=== PATIENT | female | born 1945 | race Caucasian/White ===

== ENCOUNTER 2022-04-02 00:11 | Inpatient (IN) | payer MEDICARE, OTHER, SELFPAY ==
[2022-04-02] VITALS (46 sets, daily range): BP systolic 141–207; BP diastolic 70–114; PULSE 68–118; RESP 8–41; TEMP 36.6; O2SAT 83–96; BMI 43.4; BMI 41.8
--- NOTE | 2022-04-02 00:35 | ED.GENADULT ---
HPI - General Adult General Chief complaint: Shortness of Breath/Dyspnea Stated complaint: sob Time Seen by Provider: 04/02/22 00:14 History of Present Illness HPI narrative: 76-year-old woman with a history of diastolic CHF, hypertension, paroxysmal atrial fibrillation on warfarin, orthostatic hypotension, diabetes, hyperlipidemia, hypothyroidism, and fibromyalgia and opioid dependent chronic pain as well as asplenia presents with acute respiratory distress. She notes that she has been feeling more short of breath over the last number of days. Reportedly COVID positive on March 29 and was prescribed Paxlovid on 03/30. She reports that she does have a productive cough, describing the sputum as increasingly green over the last couple of days. She denies any fevers. She does not report overt chest pain or palpitations no abdominal pain no vomiting and does not feel that her lower extremity edema has worsened in any way. She is slightly confused and her supplements the history. Medications currently include Coreg 6.25 mg b.i.d., Celexa 40 mg, Prinivil 40 mg Coumadin 2.5 mg, oxycodone 10 mg 3 times a day, Demadex 20 mg daily, Synthroid 125 mcg daily Related Data Home Medications Medication Instructions Recorded Confirmed atorvastatin 40 mg tablet (Lipitor) 40 mg PO QAM ##0 12/20/16 carvedilol 6.25 mg tablet (Coreg) 6.25 mg PO BID ##0 12/20/16 citalopram 40 mg tablet (Celexa) 40 mg PO QDAY ##0 12/20/16 fentanyl 50 mcg/hr transdermal 1 patch topical EVERY OTHER DAY ##0 12/20/16 patch furosemide 40 mg tablet 40 mg PO QDAY ##0 12/20/16 levothyroxine 125 mcg tablet 125 mcg PO QDAY ##0 12/20/16 (Synthroid) lisinopril 40 mg tablet 40 mg PO QDAY ##0 12/20/16 warfarin 2.5 mg tablet (Coumadin) 2.5 mg PO QPM ##0 12/20/16 Previous Rx's Medication Instructions Recorded ACETAMINOPHEN 0 mg PO Q4HP PRN ##30 01/03/17 aspirin 81 mg tablet,delayed 81 mg PO BID #60 tabs 05/02/17 release cefazolin 2 gram/50 mL in dextrose 2 gm IV Q8H #21 ea 05/02/17 (iso-osmotic) intravenous piggyback oxycodone 5 mg tablet 5 - 10 mg PO Q3HP PRN #60 tabs 05/02/17 Allergies Allergy/AdvReac Type Severity Reaction Status Date / Time aspirin [ASPIRIN] AdvReac Severe GI UPSET Verified 04/02/22 00:48 paroxetine [From PAXIL] AdvReac Severe MAKES ME Verified 04/02/22 00:48 CRAZY Review of Systems Review of Systems ROS Unobtainable: Unobtainable due to medical condition and Unobtainable due to mental condition Patient History Medical History Atrial fibrillation Chronic pain disorder Diabetes Diastolic heart failure Fibromyalgia syndrome Hyperlipidemia Hypothyroidism (acquired) Obesity, Class III, BMI 40-49.9 (morbid obesity) Social History Smoking Status: Unknown if ever smoked Exam Initial Vital Signs Initial Vital Signs: Vital Signs Pulse Rate 114 H 04/02/22 00:29 Respiratory Rate 28 H 04/02/22 00:29 Blood Pressure 186/84 H 04/02/22 00:29 Pulse Oximetry 94 04/02/22 00:29 Oxygen Delivery Method 04/02/22 00:29 Oxygen Flow Rate 4 04/02/22 00:29 General: Chronically ill-appearing 76-year-old woman with moderate respiratory distress able to speak in 3-4 word sentences for overall memory HEENT: Very dry mucous membranes, normal sclera with reactive pupils, Neck: Unable to excess JVD secondary to work of breathing and body habitus Respiratory: Lungs significant crackles to upper lung liu, wheeze in all lung liu and rhonchi bilaterally lower lung field Cardiac: Tachycardic and irregular with overriding lung sounds Abdomen: Soft, obese, nontender, good bowel tones, no flank pain Skin: Warm and dry, no rashes Neurologic: Globally weak, able to move all extremities mild confusion Extremities: No trauma, 2+ bilateral lower extremity edema without chronic venous stasis changes Psych: acutely ill, mild confusion Course Orders Ordered: ED Orders 04/02/22 00:18 EKG-12 Lead Stat Measure peak expiratory flow ONCE RT Consult Eval and Treat Now 04/02/22 00:25 Complete Blood Count AUTO DIFF Stat Comprehensive Metabolic Panel Stat Lactate (Lactic Acid) Stat Lipase Stat Magnesium Stat NT-proBNP (BNP-Adult 18+) Stat Procalcitonin Stat Prothrombin Time INR Stat Troponin I Stat 04/02/22 00:45 Urinalysis and Microscopic Stat Urine Culture Stat 04/02/22 00:46 ABG [Arterial Blood Gas] Stat 04/02/22 00:47 XR chest 1V Stat 04/02/22 00:50 BiPAP Ventilatory Support RT PROTOCOL 04/02/22 00:51 COVID19 -Nasal RAPID/Pre-Proc Stat 04/02/22 01:04 Respiratory Panel (Film Array) Stat Sputum Culture Stat 04/02/22 02:03 Blood Culture Stat Discontinued Medications Albuterol/Ipratropium (Albuterol/Ipratropium 3 Ml Ampul) 3 ml INH NOW ONE Stop: 04/02/22 00:47 Last Admin: 04/02/22 02:01 Dose: 3 ml Documented By: MEDARDO Furosemide 120 mg/ Sodium (Chloride) 62 mls @ 124 mls/hr IV NOW ONE Stop: 04/02/22 00:51 Last Admin: 04/02/22 02:11 Dose: 124 mls/hr Documented By: JANIE Piperacillin Sod/Tazobactam (Sod 4.5 gm/ Sodium Chloride) 100 mls @ 200 mls/hr IV NOW ONE Stop: 04/02/22 00:51 Methylprednisolone (Methylprednisolone 125 Mg/2 Ml Vial) 125 mg IV NOW ONE Stop: 04/02/22 00:51 Last Admin: 04/02/22 02:10 Dose: 125 mg Documented By: JANIE Nitroglycerin (Nitroglycerin Oint 1 Inch/Gm Oint...G.) 0.5 inch TOP NOW ONE Stop: 04/02/22 01:14 Last Admin: 04/02/22 02:11 Dose: 0.5 inch Documented By: JANIE Vital Signs Vital signs: Vital Signs - 8 hr 04/02/22 00:29 04/02/22 01:40 04/02/22 02:11 Pulse Rate 114 H 112 H Respiratory Rate 28 H Blood Pressure 186/84 H 150/79 H Pulse Oximetry 94 92 Oxygen Delivery Method Nasal Cannula Nasal Cannula Oxygen Flow Rate 4 5 Fraction of Inspired Oxygen 04/02/22 01:50 Pulse Rate Respiratory Rate Blood Pressure Pulse Oximetry Oxygen Delivery Method Oxygen Flow Rate Fraction of Inspired Oxygen 40 Medical Decision Making Lab Data Result diagrams: 04/02/22 00:25 04/02/22 00:25 Labs: Lab Results 04/02/22 04/02/22 04/02/22 Range/Units 00:25 00:25 00:25 WBC 20.0 H (4.5-11.0) X10^3/uL RBC 5.09 (4.0-5.2) X10^6/uL Hgb 15.6 (12.0-16.0) g/dL Hct 46.9 H (36-46) % MCV 92.1 (80-100) fL MCH 30.6 (26-34) PG MCHC 33.2 (30-36) % RDW 14.4 (11.6-14.8) % Plt Count 266 (150-400) X10^3/uL Neut % (Auto) 82.2 H (50-75) % Lymph % (Auto) 9.2 L (25-40) % Beck[place] % (Auto) 7.5 (3-14) % Eos % (Auto) 1.0 L (2-4) % Baso % (Auto) 0.1 (0-2) % Neut # (Auto) 49128 H (4955-3432) /uL Lymph # (Auto) 1800 (1031-9441) /uL [place] # (Auto) 1500 H (0-900) /uL Eos # (Auto) 200 (0-450) /uL Baso # (Auto) 0 (0-100) /uL PT (10.1-12.7) SECONDS INR (0.9-1.3) Sodium 135 L (137-145) mmol/L Potassium 4.4 (3.4-5.1) mmol/L Chloride 97 L (98-107) mmol/L Carbon Dioxide 28 (22-32) mmol/L BUN 27 H (7-17) mg/dL Creatinine 0.98 (0.52-1.04) mg/dL Estimated GFR 59 L (>60) mL/min BUN/Creatinine Ratio 27.6 H (6-22) Glucose 171 H (80-110) mg/dL Lactate 1.7 (0.7-2.1) mmol/L Calcium 8.5 (8.4-10.2) mg/dL Magnesium (1.6-2.3) mg/dL Total Bilirubin 0.7 (0.2-1.3) mg/dL AST 36 (14-36) IU/L ALT 24 (<35) IU/L Alkaline Phosphatase 144 H (38-126) U/L Troponin I (0.01-0.034) ng/mL NT-Pro-B Natriuret Pep (<450) pg/mL Total Protein 8.0 (6.3-8.2) g/dL Albumin 4.0 (3.5-5.0) g/dL Globulin 4.0 (1.7-4.1) g/dL Albumin/Globulin Ratio 1.0 (1.0-2.8) Lipase (23-300) U/L Procalcitonin (<0.5) ng/mL Urine Color Urine Appearance Urine pH (4.5-8.0) Ur Specific [place] (1.000-1.035) Urine Protein (Negative) Urine Glucose (UA) (Negative) g/dL Urine Ketones (NEGATIVE) Urine Occult Blood (Negative) Urine Nitrate (Negative) Urine Bilirubin (NEGATIVE) Urine Urobilinogen (0.2) E.U./dL Ur Leukocyte Esterase (NEGATIVE) Urine RBC (0-5/HPF) Urine WBC (0-5/HPF) Ur Squamous Epith Cells (0-5/HPF) Urine Bacteria (None) Hyaline Casts (None) Granular Casts (None) Ur Culture Indicated? Chlamy pneumoniae PCR (Not Detect) Adenovirus (PCR) (Not Detect) B. pertussis DNA (PCR) (Not Detecte) B.parapertussis DNA PCR (Not Detecte) Coronavirus OC43 (PCR) (Not Detect) Coronavirus HKU1 (PCR) (Not Detect) Coronavirus 229E (PCR) (Not Detect) SARS-CoV-2 (PCR) (Negative) Coronavirus NL63 (PCR) (Not Detect) Human Metapneumovir PCR (Not Detect) Influenza Type A (PCR) (Not Detect) Influenza Type B (PCR) (Not Detect) M. pneumoniae (PCR) (Not Detect) Parainfluenza 1 (PCR) (Not Detect) Parainfluenza 2 (PCR) (Not Detect) Parainfluenza 3 (PCR) (Not Detect) Parainfluenza 4 (PCR) (Not Detect) RSV (PCR) (Not Detect) Entero/Rhino (PCR) (Not Detect) 04/02/22 04/02/22 04/02/22 Range/Units 00:25 00:25 00:45 WBC (4.5-11.0) X10^3/uL RBC (4.0-5.2) X10^6/uL Hgb (12.0-16.0) g/dL Hct (36-46) % MCV (80-100) fL MCH (26-34) PG MCHC (30-36) % RDW (11.6-14.8) % Plt Count (150-400) X10^3/uL Neut % (Auto) (50-75) % Lymph % (Auto) (25-40) % Beck[place] % (Auto) (3-14) % Eos % (Auto) (2-4) % Baso % (Auto) (0-2) % Neut # (Auto) (7737-6867) /uL Lymph # (Auto) (1493-9288) /uL [place] # (Auto) (0-900) /uL Eos # (Auto) (0-450) /uL Baso # (Auto) (0-100) /uL PT 22.4 H (10.1-12.7) SECONDS INR 2.0 H (0.9-1.3) Sodium (137-145) mmol/L Potassium (3.4-5.1) mmol/L Chloride (98-107) mmol/L Carbon Dioxide (22-32) mmol/L BUN (7-17) mg/dL Creatinine (0.52-1.04) mg/dL Estimated GFR (>60) mL/min BUN/Creatinine Ratio (6-22) Glucose (80-110) mg/dL Lactate (0.7-2.1) mmol/L Calcium (8.4-10.2) mg/dL Magnesium 2.2 (1.6-2.3) mg/dL Total Bilirubin (0.2-1.3) mg/dL AST (14-36) IU/L ALT (<35) IU/L Alkaline Phosphatase (38-126) U/L Troponin I < 0.012 (0.01-0.034) ng/mL NT-Pro-B Natriuret Pep 423 (<450) pg/mL Total Protein (6.3-8.2) g/dL Albumin (3.5-5.0) g/dL Globulin (1.7-4.1) g/dL Albumin/Globulin Ratio (1.0-2.8) Lipase 23 (23-300) U/L Procalcitonin 0.24 (<0.5) ng/mL Urine Color Yellow Urine Appearance Clear Urine pH 6.0 (4.5-8.0) Ur Specific [place] 1.020 (1.000-1.035) Urine Protein 2+ H (Negative) Urine Glucose (UA) Negative (Negative) g/dL Urine Ketones Negative (NEGATIVE) Urine Occult Blood 1+ H (Negative) Urine Nitrate Positive H (Negative) Urine Bilirubin Negative (NEGATIVE) Urine Urobilinogen 0.2 (0.2) E.U./dL Ur Leukocyte Esterase Negative (NEGATIVE) Urine RBC 1-5/hpf (0-5/HPF) Urine WBC 5-10/hpf H (0-5/HPF) Ur Squamous Epith Cells 1-5 /hpf (0-5/HPF) Urine Bacteria Many (>30) H (None) Hyaline Casts 10-30/lpf (None) Granular Casts 1-5/lpf (None) Ur Culture Indicated? Specimen cultured Chlamy pneumoniae PCR (Not Detect) Adenovirus (PCR) (Not Detect) B. pertussis DNA (PCR) (Not Detecte) B.parapertussis DNA PCR (Not Detecte) Coronavirus OC43 (PCR) (Not Detect) Coronavirus HKU1 (PCR) (Not Detect) Coronavirus 229E (PCR) (Not Detect) SARS-CoV-2 (PCR) (Negative) Coronavirus NL63 (PCR) (Not Detect) Human Metapneumovir PCR (Not Detect) Influenza Type A (PCR) (Not Detect) Influenza Type B (PCR) (Not Detect) M. pneumoniae (PCR) (Not Detect) Parainfluenza 1 (PCR) (Not Detect) Parainfluenza 2 (PCR) (Not Detect) Parainfluenza 3 (PCR) (Not Detect) Parainfluenza 4 (PCR) (Not Detect) RSV (PCR) (Not Detect) Entero/Rhino (PCR) (Not Detect) 04/02/22 04/02/22 Range/Units 00:51 01:04 WBC (4.5-11.0) X10^3/uL RBC (4.0-5.2) X10^6/uL Hgb (12.0-16.0) g/dL Hct (36-46) % MCV (80-100) fL MCH (26-34) PG MCHC (30-36) % RDW (11.6-14.8) % Plt Count (150-400) X10^3/uL Neut % (Auto) (50-75) % Lymph % (Auto) (25-40) % Beck[place] % (Auto) (3-14) % Eos % (Auto) (2-4) % Baso % (Auto) (0-2) % Neut # (Auto) (1663-5990) /uL Lymph # (Auto) (4701-7964) /uL [place] # (Auto) (0-900) /uL Eos # (Auto) (0-450) /uL Baso # (Auto) (0-100) /uL PT (10.1-12.7) SECONDS INR (0.9-1.3) Sodium (137-145) mmol/L Potassium (3.4-5.1) mmol/L Chloride (98-107) mmol/L Carbon Dioxide (22-32) mmol/L BUN (7-17) mg/dL Creatinine (0.52-1.04) mg/dL Estimated GFR (>60) mL/min BUN/Creatinine Ratio (6-22) Glucose (80-110) mg/dL Lactate (0.7-2.1) mmol/L Calcium (8.4-10.2) mg/dL Magnesium (1.6-2.3) mg/dL Total Bilirubin (0.2-1.3) mg/dL AST (14-36) IU/L ALT (<35) IU/L Alkaline Phosphatase (38-126) U/L Troponin I (0.01-0.034) ng/mL NT-Pro-B Natriuret Pep (<450) pg/mL Total Protein (6.3-8.2) g/dL Albumin (3.5-5.0) g/dL Globulin (1.7-4.1) g/dL Albumin/Globulin Ratio (1.0-2.8) Lipase (23-300) U/L Procalcitonin (<0.5) ng/mL Urine Color Urine Appearance Urine pH (4.5-8.0) Ur Specific [place] (1.000-1.035) Urine Protein (Negative) Urine Glucose (UA) (Negative) g/dL Urine Ketones (NEGATIVE) Urine Occult Blood (Negative) Urine Nitrate (Negative) Urine Bilirubin (NEGATIVE) Urine Urobilinogen (0.2) E.U./dL Ur Leukocyte Esterase (NEGATIVE) Urine RBC (0-5/HPF) Urine WBC (0-5/HPF) Ur Squamous Epith Cells (0-5/HPF) Urine Bacteria (None) Hyaline Casts (None) Granular Casts (None) Ur Culture Indicated? Chlamy pneumoniae PCR Not detected (Not Detect) Adenovirus (PCR) Not detected (Not Detect) B. pertussis DNA (PCR) Not detected (Not Detecte) B.parapertussis DNA PCR Not detected (Not Detecte) Coronavirus OC43 (PCR) Not detected (Not Detect) Coronavirus HKU1 (PCR) Not detected (Not Detect) Coronavirus 229E (PCR) Not detected (Not Detect) SARS-CoV-2 (PCR) Positive H Detected H (Negative) Coronavirus NL63 (PCR) Not detected (Not Detect) Human Metapneumovir PCR Not detected (Not Detect) Influenza Type A (PCR) Not detected (Not Detect) Influenza Type B (PCR) Not detected (Not Detect) M. pneumoniae (PCR) Not detected (Not Detect) Parainfluenza 1 (PCR) Not detected (Not Detect) Parainfluenza 2 (PCR) Not detected (Not Detect) Parainfluenza 3 (PCR) Not detected (Not Detect) Parainfluenza 4 (PCR) Not detected (Not Detect) RSV (PCR) Not detected (Not Detect) Entero/Rhino (PCR) Not detected (Not Detect) Imaging Data Chest x-ray: Radiologist's Impression: FINDINGS:? ? Surgical changes and devices:? None.? ? Lungs and pleura:? Lung apices are partially obscured by patient's neck soft tissues.? There are bibasilar patchy opacities consistent with consolidation or atelectasis.? Pulmonary vascular prominence is suggestive of mild pulmonary edema. ? Mediastinum:? Mediastinal contours are unchanged.? Heart size is enlarged. ? Bones and chest wall:? No suspicious bony lesions.? Overlying soft tissues appear unremarkable.? ? IMPRESSION:? ? 1. Cardiomegaly with pulmonary edema suggestive of congestive heart failure. ? 2. Patchy bibasilar opacities consistent with atelectasis or consolidation/pneumonia.? ? ? Dictated by: Abhinav Tineo M.D. on 04/02/2022 at 1:34 ? ? ECG Data Interpretation: Atrial fibrillation at a rate of 117 Poor baseline No acute ischemic changes MDM Narrative Medical decision making narrative: 76-year-old woman with coronary artery disease, congestive heart failure and recently diagnosed COVID comes in in acute respiratory distress. She is slightly confused, has significant pulmonary findings including crackles rhonchi and wheeze more suggestive of congestive heart failure and possible consolidated bacterial pneumonia rather than COVID pneumonia. She certainly has fluid overload by clinical exam and chest x-ray however her BNP is not dramatically elevated. There were no significant EKG changes and troponin is not elevated to suggest acute coronary syndrome. She is in her usual atrial fibrillation with mild tachycardia likely contributing to the congestive heart failure symptoms. With the significant leukocytosis, change in sputum and lack of spleen she is started on antibiotics in the form of Zosyn, however procalcitonin is not dramatically elevated. Urine does suggest an acute urinary tract infection, again she is already started on Zosyn ABG shows a pH of 7.286 with a CO2 of 61.5 and O2 of 67 on 4 L. She is started on BiPAP and seems to be tolerating this nicely. At this time she needs to be admitted to the hospitalist service for Acute diastolic congestive heart failure Acute respiratory distress hypoxic and hypercarbic tolerating BiPAP well COVID-19 pneumonia Urinary tract infection Acutely altered mental status without elevated lactic acid or hypotension. Discussed with hospitalist service, Sole Mann, admitted to the ICU. Critical Care Time Critical Care Time Critical Care Time: Yes Total Critical Care Time: 36 Attestation: Critical care time is separate from other billable procedures. There is a high probability of a significant, sudden or life-threatening deterioration that requires my full and direct attention, intervention and personal management. This critical care time includes consultation with family and other consulting doctors, review of records, and interpretation of data from labs, EKGs and imaging as well as managements of acute respiratory failure, cardiac failure and concerns for sepsis. Discharge Plan Departure Patient Disposition: Admitted As Inpatient Clinical Impression: Respiratory failure with hypoxia and hypercapnia, Diastolic CHF, acute on chronic, Atrial fibrillation with RVR, COVID-19, Acute UTI Prescriptions: No Action atorvastatin [Lipitor] 40 MG tablet 40 mg PO QAM Qty: 0 citalopram [Celexa] 40 MG tablet 40 mg PO QDAY Qty: 0 levothyroxine [Synthroid] 125 MCG tablet 125 mcg PO QDAY Qty: 0 lisinopril 40 MG tablet 40 mg PO QDAY Qty: 0 carvedilol [Coreg] 6.25 MG tablet 6.25 mg PO BID Qty: 0 furosemide 40 MG tablet 40 mg PO QDAY Qty: 0 warfarin [Coumadin] 2.5 MG tablet 2.5 mg PO QPM Qty: 0 fentanyl 50 MCG/HR patch 72 hour 1 patch Topical EVERY OTHER DAY Qty: 0 ACETAMINOPHEN 0 mg PO Q4HP PRNQty: 30 0RF aspirin 81 MG tablet,delayed release (DR/EC) 81 mg PO BID Qty: 60 0RF oxycodone 5 MG tablet 5 - 10 mg PO Q3HP PRNQty: 60 0RF cefazolin in dextrose (iso-os) 2 GM/50 ML piggyback 2 gm IV Q8H Qty: 21 0RF Referrals: Antonieta Calderon ARNP [Primary Care Provider] -
[2022-04-02 00:43] LABS: Add Manual Diff / Slide Review NO; Basophils Absolute Auto 0 /uL (0-100); Basophils Percent Auto 0.1 % (0-2); Eosinophils Absolute Auto 200 /uL (0-450); Hematocrit 46.9 % (36-46); Hemoglobin 15.6 g/dL (12.0-16.0); Lymphocytes Absolute Auto 1800 /uL (1100-4500); Lymphocytes Percent Auto 9.2 % (25-40); Mean Corpuscular HGB Conc 33.2 % (30-36); Mean Corpuscular Hemoglobin 30.6 PG (26-34); Mean Corpuscular Volume 92.1 fL (80-100); Monocytes Absolute Auto 1500 /uL (0-900); Monocytes Percent Auto 7.5 % (3-14); Neutrophils Absolute Auto 16400 /uL (1500-7000); Neutrophils Percent Auto 82.2 % (50-75); Platelet Count 266 X10^3/uL (150-400); Red Blood Cell Count 5.09 X10^6/uL (4.0-5.2); Red Cell Distribution Width 14.4 % (11.6-14.8)
--- NOTE | 2022-04-02 00:47 | DI.RAD.S_ITS ---
PROCEDURE: XR CHEST 1V INDICATIONS: resp distess TECHNIQUE: One view of the chest was acquired. COMPARISON: [facility], , CHEST FOR PICC PLACEMENT, 05/01/2017, 14:57. FINDINGS: Surgical changes and devices: None. Lungs and pleura: Lung apices are partially obscured by patient's neck soft tissues. There are bibasilar patchy opacities consistent with consolidation or atelectasis. Pulmonary vascular prominence is suggestive of mild pulmonary edema. Mediastinum: Mediastinal contours are unchanged. Heart size is enlarged. Bones and chest wall: No suspicious bony lesions. Overlying soft tissues appear unremarkable. IMPRESSION: 1. Cardiomegaly with pulmonary edema suggestive of congestive heart failure. 2. Patchy bibasilar opacities consistent with atelectasis or consolidation/pneumonia. Dictated by: Abhinav Tineo M.D. on 04/02/2022 at 1:34 Approved by: Abhinav Tineo M.D. on 04/02/2022 at 1:36
[2022-04-02 00:49] LABS: Alanine Aminotransferase 24 IU/L (<35); Alkaline Phosphatase 144 U/L (38-126); Aspartate Aminotransferase 36 IU/L (14-36); BUN Creatinine Ratio 27.6 (6-22); Bilirubin Total 0.7 mg/dL (0.2-1.3); Blood Urea Nitrogen 27 mg/dL (7-17); Calcium 8.5 mg/dL (8.4-10.2); Carbon Dioxide 28 mmol/L (22-32); Chloride 97 mmol/L (98-107); Estimated Glomerular Filt Rate 59 mL/min (>60); Glucose 171 mg/dL (80-110); HEMOLYSIS 27 (0-50); Lactate (Lactic Acid) 1.7 mmol/L (0.7-2.1); Potassium 4.4 mmol/L (3.4-5.1); Sodium 135 mmol/L (137-145)
[2022-04-02 00:57] LABS: Appearance Urine UA CLEAR; Bilirubin Urine UA NEGATIVE (NEGATIVE); Color Urine UA YELLOW; Glucose Urine UA NEGATIVE (Negative); Ketones Urine UA NEGATIVE (NEGATIVE); Leukocyte Esterase Urine UA NEGATIVE (NEGATIVE); Nitrite Urine UA POSITIVE (Negative); Occult Blood Urine UA 1+ (Negative); Protein Urine UA 2+ (Negative); Urobilinogen Urine UA 0.2 E.U./dL (0.2)
[2022-04-02 00:58] LABS: Prothrombin Time 22.4 SECONDS (10.1-12.7)
[2022-04-02 01:04] LABS: Lipase 23 U/L (23-300); Magnesium 2.2 mg/dL (1.6-2.3)
[2022-04-02 01:04] LABS: Granular Casts Urine 1-5/LPF; Hyaline Casts Urine 10-30/LPF
[2022-04-02 01:07] LABS: RBC Urine 1-5/HPF (0-5/HPF); WBC Urine 5-10/HPF (0-5/HPF)
[2022-04-02 01:08] LABS: Squamous Epithelial Cell Urine 1-5 /HPF (0-5/HPF)
[2022-04-02 01:09] LABS: Bacteria Urine Many (>30); Culture Indicated Urine Specimen Cultured
[2022-04-02 01:16] LABS: COVID19 -Nasal RAPID POSITIVE (Negative)
[2022-04-02 01:17] LABS: NT-proBNP (BNP-Adult 18+) 423 pg/mL (<450); Troponin I < 0.012 ng/mL (0.01-0.034)
[2022-04-02 01:21] LABS: Procalcitonin 0.24 ng/mL (<0.5)
[2022-04-02] MEDS: ALBUTEROL/IPRATROPIUM 3 ML AMPUL INH ×2 (02:01→21:15)
[2022-04-02] MEDS: methylPREDNISolone 125 MG/2 ML VIAL IV (02:10)
[2022-04-02] MEDS: NITROGLYCERIN OINT 1 INCH/GM OINT...G. 0.5 INCH TOP (02:11)
[2022-04-02] MEDS: FUROSEMIDE 120 MG in SODIUM CHLORIDE 0.9% 50 ML 124 MG IV (02:11)
[2022-04-02 02:13] LABS: Adenovirus Not Detected (Not Detect); SARS- CoV-2 Detected (Not Detecte)
[2022-04-02 02:14] LABS: B. parapertussis Not Detected (Not Detecte); Bordetella pertussis Not Detected (Not Detecte); Chlamydophila pneumoniae Not Detected (Not Detect); Coronavirus 229E Not Detected (Not Detect); Coronavirus HKU1 Not Detected (Not Detect); Coronavirus NL 63 Not Detected (Not Detect); Coronavirus OC43 Not Detected (Not Detect); Human Metapneumovirus Not Detected (Not Detect); Human Rhinovirus/Enterovirus Not Detected (Not Detect); Influenza A Not Detected (Not Detect); Influenza B Not Detected (Not Detect); Mycoplasma pneumoniae Not Detected (Not Detect); Parainfluenza Virus 1 Not Detected (Not Detect); Parainfluenza Virus 2 Not Detected (Not Detect); Parainfluenza Virus 3 Not Detected (Not Detect); Parainfluenza Virus 4 Not Detected (Not Detect); Respiratory Syncytial Virus Not Detected (Not Detect)
[2022-04-02] MEDS: PIPERACILLIN/TAZO 4.5 GM in SODIUM CHLORIDE 0.9% 100 ML IV (03:00)
--- NOTE | 2022-04-02 03:26 | DI.ECHO.S_ITS ---
[place] [facility]---------[facility] +---------+ : : [address] : : : : [id number] : : : : Phone: [phone] Echocardiogram Report + + :Name: SASHA LEES Study Date: 04/02/2022 Height: 63 in : :[facility] ReadingLocation: Weight: 236 lb : : Gender: Female BSA: 2.1 m2 : :: 1945 Age: 76 yrs BP: 152/71 mmHg: :Reason For Study: CHF EXACERBATION, COVID POSITIVE : :Ordering Physician: Lucas BUSTAMANTEformed By: Magda Gomez : :Referring: ABELINO BUSTAMANTE : + + Interpretation Summary The study quality was technically difficult. The left ventricle is normal in size. There is mild-moderate concentric left ventricular hypertrophy. The ejection fraction is estimated to be 60-65%. The right ventricle is mildly dilated. The right ventricle is not well visualized. There appears to be hypokinesis of mid to distal free RV wall. Overall RV function appears to be mild to moderately reduced. RV was not well seen in the previous study. All the valves were not well seen however no significant valvular pathology seen. The IVC is dilated (diameter is greater than 2.1 cm) yet it collapses greater than 50% with a sniff. This suggests a right atrial pressure of 8 mm Hg. Consider work-up to rule out pulmonary embolism. Procedure: A two-dimensional transthoracic echocardiogram with color flow and Doppler was performed. The study quality was technically difficult. Comparison is made with the echocardiogram of 11/20/2019. Limited views available. The heart rate ranged between 80-97 bpm during the study. Left Ventricle: The left ventricle is normal in size. There is mild-moderate concentric left ventricular hypertrophy. There is no thrombus. The ejection fraction is estimated to be 60-65%. There are no focal wall motion abnormalities. Diastolic function could not be accurately assessed due to unobtainable data. Right Ventricle: The right ventricle is mildly dilated. The right ventricle is not well visualized. There appears to be hypokinesis of mid to distal free RV wall. Overall RV function appears to be mild to moderately reduced. RV was not well seen in the previous study. Atria: The left atrium is not well visualized. Right atrium not well visualized. Mitral Valve: There is mild mitral annular calcification. There is no mitral regurgitation noted. Aortic Valve: The aortic valve is trileaflet. The aortic valve is slightly calcified. The aortic valve is not well visualized. There is no aortic valve stenosis. No aortic regurgitation is present. Tricuspid Valve: The tricuspid valve is not well visualized. Pulmonary artery pressures cannot be estimated because of the lack of a measurable TR jet velocity. Pulmonic Valve: The pulmonic valve is not well visualized. There is no pulmonic valvular regurgitation. Great Vessels: The aortic root is normal size. The dimensions of the ascending aorta are normal. The IVC is dilated (diameter is greater than 2.1 cm) yet it collapses greater than 50% with a sniff. This suggests a right atrial pressure of 8 mm Hg. Pericardium/ Pleura There is no pericardial effusion. There is no pleural effusion. MMode/2D Measurements & Calculations LVIDd: 3.6 cm LVOT diam: 2.0 cm LVIDs: 2.6 cm Ao root diam: 3.6 cm FS: 27.7 % asc Aorta Diam: 3.5 cm EPSS: 0.56 cm Ao Arch Diam (Prox Trans): 3.7 cm IVSd: 1.4 cm LVPWd: 1.2 cm LV camarena. diameter/BSA (cm/m^2): 1.7 LV sys. diameter/BSA (cm/m^2): 1.2 LA dimension: 3.2 cm IVC diam: 2.4 cm RVD1 (basal): 4.4 cm RVD2 (mid): 3.7 cm Doppler Measurements & Calculations Ao V2 max: 90.8 cm/sec LVOT Max Dionisio: 52.1 cm/sec Ao V2 mean: 60.3 cm/sec LV V1 max P.1 mmHg Ao max P.3 mmHg LV V1 VTI: 8.9 cm Ao mean P.7 mmHg TAMANNA(I,D): 1.6 cm2 Ao V2 VTI: 17.0 cm TAMANNA(V,D): 1.8 cm2 sev ratio: 0.52 TAMANNA indexed to BSA (cm^2/m^2): 0.77 PA V2 max: 91.4 cm/sec SV(LVOT): 27.2 ml PA V2 mean: 64.7 cm/sec PA mean P.8 mmHg PA pr(Accel): 48.2 mmHg Reading Physician:12:48 PM
--- NOTE | 2022-04-02 04:37 | DI.CT.S_ITS ---
PROCEDURE: CT CHEST WO CON INDICATIONS: ARF, hypercapnea, COVID, pulm htn seen on cxr TECHNIQUE: Noncontrast 5 mm thick sections acquired from the pulmonary apices to the posterior costophrenic angles. 1 mm lung window, 5 mm thick coronal and sagittal and 7 mm axial MIP reformats were then acquired. For radiation dose reduction, the following was used: automated exposure control, adjustment of mA and/or kV according to patient size. COMPARISON: [facility], CR, XR CHEST 1V, 04/02/2022, 0:56. FINDINGS: Image quality: Excellent. Lungs and pleura: Peribronchial opacities are seen in the lower lobes bilaterally, greater on the left. There is bronchial wall thickening. Mild volume loss is noted in the left lower lobe. Clustered nodules are seen in the right middle lobe and the superior segment of the right lower lobe that may be infectious or inflammatory in etiology. No pleural effusions or pneumothorax. Central and peripheral airways are patent and normal in caliber. Mediastinum: Heart size is moderately enlarged. No pericardial effusion. No mediastinal adenopathy by size criteria. Thoracic aorta and central pulmonary arteries are normal in size. Esophagus is normal in caliber. No hiatal hernia. Bones and chest wall: No suspicious bony lesions. No vertebral body compression fractures. No axillary or supraclavicular adenopathy by size criteria. Thyroid is unremarkable. Abdomen: Surgical clips are seen in the left upper quadrant. Visualized upper abdominal solid organs and bowel loops appear normal in the absence of contrast. IMPRESSION: 1. Bibasilar peribronchovascular opacities are suspicious for aspiration or pneumonia. Clustered tree-in-bud nodules are seen in the right middle and lower lobes that are most likely infectious or inflammatory in etiology. 2. Moderate cardiomegaly. Dictated by: Ibrahima Quan M.D. on 04/02/2022 at 16:54 Approved by: Ibrahima Quan M.D. on 04/02/2022 at 16:59
--- NOTE | 2022-04-02 04:40 | P.HP_ITS ---
History of Present Illness History of Present Illness Date Patient Seen: 04/02/22 Time Patient Seen: 04:40 Chief complaint: Shortness of breath, dx'd covid Narrative: Lena Diez is 76-year-old woman with a history of diastolic CHF, hypertension, paroxysmal atrial fibrillation anticoagulated on warfarin, pre- diabetes, hyperlipidemia, hypothyroidism, and, rheumatoid arthritis, fibromyalgia and opioid dependent chronic pain as well as asplenia presents with acute respiratory distress. Patient is able to carry on a conversation particularly about her detailed past however she seems to be a bit confused about her medications and course of recent course of events. She defers to her for her medical history. Apparently she developed some symptoms and was tested for COVID on March 28 and is on day 2 of taking Paxovid. Apparently the called the ambulance because she was short of breath. She was found to be in acute respiratory failure with hypercapnia and hypercarbia in the emergency department. She does complain about worse feet swelling. She denies dysuria or chest pain. She does have numbing of her thumb for finger and middle finger of her left hand which she states is not new. She has rheumatoid arthritis for which she has generalized chronic pain. She states that she does have heart failure and sees Dr. Alexander for this. Her primary care provider is in [place], she sees a production control pegboard clerk in [place], she and her live in [place] however EMS brought her here because the hospital in [place] is on divert. In the emergency department she was put on BiPAP, administered a dose of Solu- Medrol for her breathing, was found to have a UTI and started on IV Zosyn. Currently her blood pressure was 150/79, heart rate 112, respiratory rate 28, oxygen saturation of 92% on 5 L with an FiO2 of 40 she weighs 111 kg with a BMI of 43.4. She does have a white count of 20 with a left shift her INR is therapeutic at 2.0, sodium 135, chloride 97, BUN 27, GFR is 59, glucose 171, A1c is pending, alk-phos is 144, TSH is pending, UA is positive for urinary tract infection and viral PCR is negative, COVID-19 PCR is still positive. Patient History Medical History (Updated 04/02/22 @ 04:48 by DEBBIE Menon) Anticoagulated on warfarin Atrial fibrillation Chronic pain disorder Diabetes Diastolic heart failure Fibromyalgia syndrome Hyperlipidemia Hypothyroidism (acquired) Obesity, Class III, BMI 40-49.9 (morbid obesity) Surgical History (Updated 04/02/22 @ 06:38 by DEBBIE Menon) Asplenia Hx of bilateral hip replacements Hx of total knee replacement Family & Social History Family History (Updated 04/02/22 @ 04:50 by DEBBIE Menon) Mother Heart disease Father Heart disease Diabetes mellitus Daughter Heart disease Breast cancer Son Heart disease Safety & Behavioral: Feels Safe in Current Yes Environment Tobacco & Substance use: Smoking Status quit many years ago alcohol intake frequency denies Substance Use Type does not use Meds Home Medications and Allergies Home Medications Medication Instructions Recorded Confirmed Type atorvastatin 40 mg tablet (Lipitor) 40 mg PO QAM ##0 12/20/16 History carvedilol 6.25 mg tablet (Coreg) 6.25 mg PO BID ##0 12/20/16 History citalopram 40 mg tablet (Celexa) 40 mg PO QDAY ##0 12/20/16 History fentanyl 50 mcg/hr transdermal 1 patch topical EVERY OTHER DAY ##0 12/20/16 History patch furosemide 40 mg tablet 40 mg PO QDAY ##0 12/20/16 History levothyroxine 125 mcg tablet 125 mcg PO QDAY ##0 12/20/16 History (Synthroid) lisinopril 40 mg tablet 40 mg PO QDAY ##0 12/20/16 History warfarin 2.5 mg tablet (Coumadin) 2.5 mg PO QPM ##0 12/20/16 History ACETAMINOPHEN 0 mg PO Q4HP PRN ##30 01/03/17 Rx aspirin 81 mg tablet,delayed 81 mg PO BID #60 tabs 05/02/17 Rx release cefazolin 2 gram/50 mL in dextrose 2 gm IV Q8H #21 ea 05/02/17 Rx (iso-osmotic) intravenous piggyback oxycodone 5 mg tablet 5 - 10 mg PO Q3HP PRN #60 tabs 05/02/17 Rx Allergies Allergy/AdvReac Type Severity Reaction Status Date / Time aspirin [ASPIRIN] AdvReac Severe GI UPSET Verified 04/02/22 00:48 paroxetine [From PAXIL] AdvReac Severe MAKES ME Verified 04/02/22 00:48 VIRGEN Review of Systems Review of Systems ROS: Yes All systems reviewed with the patient and are negative except as otherwise documented Exam Vital Signs (past 8 hours): - 04/02/22 00:29 04/02/22 01:40 04/02/22 02:11 Pulse Rate 114 H 112 H Respiratory Rate 28 H Blood Pressure 186/84 H 150/79 H Pulse Oximetry 94 92 Oxygen Delivery Method Nasal Cannula Nasal Cannula Oxygen Flow Rate 4 5 Fraction of Inspired Oxygen 04/02/22 01:50 Pulse Rate Respiratory Rate Blood Pressure Pulse Oximetry Oxygen Delivery Method Oxygen Flow Rate Fraction of Inspired Oxygen 40 Fraction of Inspired Oxygen 40 Oxygen Delivery Method Nasal Cannula Oxygen Flow Rate 5 Narrative Exam Narrative: Gen: Alert, oriented,morbidly obese 76 y.o. female, talkative HEENT: normocephalic, atraumatic, conjunctiva clear, sclera non-icteric, oral mucosa pink and moist Neck: supple, full ROM, no JVD, trachea is midline Resp: Lungs bilateral wheezes and rales, non-labored breathing CV: RRR, no murmur or rubs Abd: obese, soft, non-tender, normoactive BTs Skin: no lesions or rashes, dry and intact, pigmented areas under pannus Neuro: Alert and oriented X 4 w/no focal deficits. Speech clear and coherent. Extremities: weak, moves all 4 extremities, is ambulatory, negative Vero?s sign Psyche: normal mood and affect. Objective Labs Result Diagrams: 04/02/22 04:49 04/02/22 04:49 Labs: Laboratory Results - last 24 hr 04/02/22 04/02/22 04/02/22 00:25 00:25 00:25 WBC 20.0 H RBC 5.09 Hgb 15.6 Hct 46.9 H MCV 92.1 MCH 30.6 MCHC 33.2 RDW 14.4 Plt Count 266 Neut % (Auto) 82.2 H Lymph % (Auto) 9.2 L [place] % (Auto) 7.5 Eos % (Auto) 1.0 L Baso % (Auto) 0.1 Neut # (Auto) 67611 H Lymph # (Auto) 1800 [place] # (Auto) 1500 H Eos # (Auto) 200 Baso # (Auto) 0 PT INR Sodium 135 L Potassium 4.4 Chloride 97 L Carbon Dioxide 28 BUN 27 H Creatinine 0.98 Estimated GFR 59 L BUN/Creatinine Ratio 27.6 H Glucose 171 H Lactate 1.7 Calcium 8.5 Magnesium Total Bilirubin 0.7 AST 36 ALT 24 Alkaline Phosphatase 144 H Troponin I NT-Pro-B Natriuret Pep Total Protein 8.0 Albumin 4.0 Globulin 4.0 Albumin/Globulin Ratio 1.0 Lipase Procalcitonin Urine Color Urine Appearance Urine pH Ur Specific [place] Urine Protein Urine Glucose (UA) Urine Ketones Urine Occult Blood Urine Nitrate Urine Bilirubin Urine Urobilinogen Ur Leukocyte Esterase Urine RBC Urine WBC Ur Squamous Epith Cells Urine Bacteria Hyaline Casts Granular Casts Ur Culture Indicated? Chlamy pneumoniae PCR Adenovirus (PCR) B. pertussis DNA (PCR) B.parapertussis DNA PCR Coronavirus OC43 (PCR) Coronavirus HKU1 (PCR) Coronavirus 229E (PCR) SARS-CoV-2 (PCR) Coronavirus NL63 (PCR) Human Metapneumovir PCR Influenza Type A (PCR) Influenza Type B (PCR) M. pneumoniae (PCR) Parainfluenza 1 (PCR) Parainfluenza 2 (PCR) Parainfluenza 3 (PCR) Parainfluenza 4 (PCR) RSV (PCR) Entero/Rhino (PCR) 04/02/22 04/02/22 04/02/22 00:25 00:25 00:45 WBC RBC Hgb Hct MCV MCH MCHC RDW Plt Count Neut % (Auto) Lymph % (Auto) [place] % (Auto) Eos % (Auto) Baso % (Auto) Neut # (Auto) Lymph # (Auto) [place] # (Auto) Eos # (Auto) Baso # (Auto) PT 22.4 H INR 2.0 H Sodium Potassium Chloride Carbon Dioxide BUN Creatinine Estimated GFR BUN/Creatinine Ratio Glucose Lactate Calcium Magnesium 2.2 Total Bilirubin AST ALT Alkaline Phosphatase Troponin I < 0.012 NT-Pro-B Natriuret Pep 423 Total Protein Albumin Globulin Albumin/Globulin Ratio Lipase 23 Procalcitonin 0.24 Urine Color Yellow Urine Appearance Clear Urine pH 6.0 Ur Specific [place] 1.020 Urine Protein 2+ H Urine Glucose (UA) Negative Urine Ketones Negative Urine Occult Blood 1+ H Urine Nitrate Positive H Urine Bilirubin Negative Urine Urobilinogen 0.2 Ur Leukocyte Esterase Negative Urine RBC 1-5/hpf Urine WBC 5-10/hpf H Ur Squamous Epith Cells 1-5 /hpf Urine Bacteria Many (>30) H Hyaline Casts 10-30/lpf Granular Casts 1-5/lpf Ur Culture Indicated? Specimen cultured Chlamy pneumoniae PCR Adenovirus (PCR) B. pertussis DNA (PCR) B.parapertussis DNA PCR Coronavirus OC43 (PCR) Coronavirus HKU1 (PCR) Coronavirus 229E (PCR) SARS-CoV-2 (PCR) Coronavirus NL63 (PCR) Human Metapneumovir PCR Influenza Type A (PCR) Influenza Type B (PCR) M. pneumoniae (PCR) Parainfluenza 1 (PCR) Parainfluenza 2 (PCR) Parainfluenza 3 (PCR) Parainfluenza 4 (PCR) RSV (PCR) Entero/Rhino (PCR) 04/02/22 04/02/22 00:51 01:04 WBC RBC Hgb Hct MCV MCH MCHC RDW Plt Count Neut % (Auto) Lymph % (Auto) [place] % (Auto) Eos % (Auto) Baso % (Auto) Neut # (Auto) Lymph # (Auto) [place] # (Auto) Eos # (Auto) Baso # (Auto) PT INR Sodium Potassium Chloride Carbon Dioxide BUN Creatinine Estimated GFR BUN/Creatinine Ratio Glucose Lactate Calcium Magnesium Total Bilirubin AST ALT Alkaline Phosphatase Troponin I NT-Pro-B Natriuret Pep Total Protein Albumin Globulin Albumin/Globulin Ratio Lipase Procalcitonin Urine Color Urine Appearance Urine pH Ur Specific [place] Urine Protein Urine Glucose (UA) Urine Ketones Urine Occult Blood Urine Nitrate Urine Bilirubin Urine Urobilinogen Ur Leukocyte Esterase Urine RBC Urine WBC Ur Squamous Epith Cells Urine Bacteria Hyaline Casts Granular Casts Ur Culture Indicated? Chlamy pneumoniae PCR Not detected Adenovirus (PCR) Not detected B. pertussis DNA (PCR) Not detected B.parapertussis DNA PCR Not detected Coronavirus OC43 (PCR) Not detected Coronavirus HKU1 (PCR) Not detected Coronavirus 229E (PCR) Not detected SARS-CoV-2 (PCR) Positive H Detected H Coronavirus NL63 (PCR) Not detected Human Metapneumovir PCR Not detected Influenza Type A (PCR) Not detected Influenza Type B (PCR) Not detected M. pneumoniae (PCR) Not detected Parainfluenza 1 (PCR) Not detected Parainfluenza 2 (PCR) Not detected Parainfluenza 3 (PCR) Not detected Parainfluenza 4 (PCR) Not detected RSV (PCR) Not detected Entero/Rhino (PCR) Not detected Assessment & Plan Assessment & Plan narrative: Lena Diez is admitted to the ICU for BiPAP therapy and further management and treatment of CHF exacerbation versus COVID-19 and acute urinary tract infect ion. Acute respiratory failure with hypercarbia and hypercapnia likely secondary to congestive heart failure versus COVID-19, present on admission * BiPAP per respiratory therapy * She was administered Solu-Medrol 125 mg IV in the emergency department * After discussion with tele ICU, we will have her go through a noncontrast CT of the chest to further delineate some abnormal findings he found on her x-ray and help delineate whether to treat a CHF versus initiating COVID-19 therapy * will give her loading dose of Remdesevir. Urinary tract infection, acute, present on admission * She was administered IV Zosyn in the emergency department * I have initiated IV ceftriaxone 2 g now and 1 g starting tomorrow Acute on chronic diastolic heart failure, Chads 2 vasc score of 7, present on admission * She is initiated on IV Lasix 40 mg in the morning * She has a Hale and has been putting out quite a bit of urine, her bag was nearly full upon arrival to the floor * Fluid restriction of 1200 mL daily with strict I&Os * Echo today * Have requested copy of last echo and progress note from Dr. Sarmiento, her inclusion internship Paroxysmal atrial fibrillation, anticoagulated on warfarin * INR is 2.0 and is currently therapeutic * Continue home dose of warfarin 2.5 mg p.o. in the afternoon Elevated glucose * Patient appears to be prediabetic with an A1c of 6.5 or diet controlled * Due to steroids she will receive, have put her on a carb controlled diet, glargine 5 units at bedtime and low dose correctional scale. Coronary artery disease, chronic * Continue home dose of carvedilol 6.25 mg bid and atorvastatin 40 mg po qpm. VTE Prophylaxis: Wells risk score 1.5 [X] Bilateral SCDs Patient is currently anticoagulated on warfarin and is therapeutic. Patient is admitted to the inpatient service due to the severity of disease, risks of further disease progression and this stay is expected to exceed 2 midn ights. FEN: IV fluids: saline lock, diet: carb control, heart healthy w/a 1200 ml/fluid restriction, labs: CBC, C/BMP, liver enzymes, Mag, PT/INR Consultants Intercept ICU, care and involvement in the patient?s care is appreciated. Dispo: probable eventual discharge to home Code status: Full code as discussed with the patient who identifies her , Emigdio her surrogate and POA. [X] I have utilized all available immediate resources to obtain, update, or review of the patient's current medications COVID-19 COVID-19 status: Positive Result date/Date tested (Pos, Neg/Pending): 03/28/22 Scores CHADS-VASc Congestive heart failure: yes Hypertension: yes Age 75 years or older: yes Diabetes mellitus: yes Stroke, TIA, or TE: no Vascular disease: yes Age 65 to 74 years: no Sex category (female): Female CHADS-VASc Score: 7 Wells' Criteria for PE Clinical signs and symptoms of DVT: No PE is #1 Dx or equally likely: No Heart rate > 100: Yes Immobilization at least 3 days or surg in previous 4 weeks: No History of PE or DVT: No Hemoptysis: No Malignancy w/Treatment within 6 months or palliative: No Wells' PE Score total: 1.5 Quality VTE Deep Vein Thrombosis/Pulmonary Embolism Present on Admission: No MIPS - Admit I confirm the patient?s Advance Care Plan is present, Code status is documented, Surrogate decision maker is in patient?s record [If Yes, STOP here]: Yes MIPS - DC The patient has current or prior documentation of left ventricular ejection fr action (LVEF) less than 40%, or moderate or severely depressed left ventricular systolic function.: No
--- NOTE | 2022-04-02 04:45 | P.TELICUCN_ITS ---
History of Present Illness Consult details If camera was activated, add TeleICU A-V Statement: PAteint seen via 2 [address] interactive AV system. I was asked to see this 76 year old with diastolic CHF, RA, hypertension, paroxysmal atrial fibrillation on warfarin, orthostatic hypotension, diabetes, hyperlipidemia, hypothyroidism, and fibromyalgia and opioid dependent chronic pain presenting with hypoxemic and hypercapneic resp failure in setting of COVID 19. I reviewed her imaging and labs. . She was diagnosed with CVOID outpatient and received paxlovid, however symptoms seemed to progress. Currerntly during my evaluation she was on 5L NC with o2 sat of 92%. She received steroids in the ED due to wheezing, otherwie her probnp is not impressive, leading me away from HF as a cause ( though I think her edema is more of a chronic finding from her diastoklic HF and likely pulm htn) Currently on coudmadin for her PAF - likely due ot her body habitus. Chief complaint: Shortness of breath, dx'd covid [facility] Medical History (Updated 04/02/22 @ 04:48 by DEBBIE Menon) Anticoagulated on warfarin Asplenia Atrial fibrillation Chronic pain disorder Diabetes Diastolic heart failure Fibromyalgia syndrome Hyperlipidemia Hypothyroidism (acquired) Obesity, Class III, BMI 40-49.9 (morbid obesity) Surgical History (Updated 04/02/22 @ 04:48 by DEBBIE Menon) Hx of bilateral hip replacements Hx of total knee replacement Family History (Updated 04/02/22 @ 04:50 by DEBBIE Menon) Mother Heart disease Father Heart disease Diabetes mellitus Daughter Heart disease Breast cancer Son Heart disease Social History Smoking Status: Unknown if ever smoked Current Medications Current Medications Medications: Home Medications atorvastatin 40 mg tablet (Lipitor) 40 mg PO QAM ##0 12/20/16 [History] carvedilol 6.25 mg tablet (Coreg) 6.25 mg PO BID ##0 12/20/16 [History] citalopram 40 mg tablet (Celexa) 40 mg PO QDAY ##0 12/20/16 [History] fentanyl 50 mcg/hr transdermal patch 1 patch topical EVERY OTHER DAY ##0 12/20/16 [History] furosemide 40 mg tablet 40 mg PO QDAY ##0 12/20/16 [History] levothyroxine 125 mcg tablet (Synthroid) 125 mcg PO QDAY ##0 12/20/16 [History] lisinopril 40 mg tablet 40 mg PO QDAY ##0 12/20/16 [History] warfarin 2.5 mg tablet (Coumadin) 2.5 mg PO QPM ##0 12/20/16 [History] ACETAMINOPHEN 0 mg PO Q4HP PRN ##30 01/03/17 [Rx] aspirin 81 mg tablet,delayed release 81 mg PO BID #60 tabs 05/02/17 [Rx] cefazolin 2 gram/50 mL in dextrose (iso-osmotic) intravenous piggyback 2 gm IV Q8H #21 ea 05/02/17 [Rx] oxycodone 5 mg tablet 5 - 10 mg PO Q3HP PRN #60 tabs 05/02/17 [Rx] Exam Vital Signs (past 8 hours): - 04/02/22 00:29 04/02/22 01:40 04/02/22 02:11 Pulse Rate 114 H 112 H Respiratory Rate 28 H Blood Pressure 186/84 H 150/79 H Pulse Oximetry 94 92 Oxygen Delivery Method Nasal Cannula Nasal Cannula Oxygen Flow Rate 4 5 Fraction of Inspired Oxygen 04/02/22 01:50 Pulse Rate Respiratory Rate Blood Pressure Pulse Oximetry Oxygen Delivery Method Oxygen Flow Rate Fraction of Inspired Oxygen 40 Fraction of Inspired Oxygen 40 Oxygen Delivery Method Nasal Cannula Oxygen Flow Rate 5 Narrative Exam Narrative: surrogate for exam is primary team Objective Labs Result Diagrams: 04/02/22 00:25 04/02/22 00:25 Labs: Laboratory Results - last 24 hr 04/02/22 04/02/22 04/02/22 00:25 00:25 00:25 WBC 20.0 H RBC 5.09 Hgb 15.6 Hct 46.9 H MCV 92.1 MCH 30.6 MCHC 33.2 RDW 14.4 Plt Count 266 Neut % (Auto) 82.2 H Lymph % (Auto) 9.2 L [place] % (Auto) 7.5 Eos % (Auto) 1.0 L Baso % (Auto) 0.1 Neut # (Auto) 09127 H Lymph # (Auto) 1800 [place] # (Auto) 1500 H Eos # (Auto) 200 Baso # (Auto) 0 PT INR Sodium 135 L Potassium 4.4 Chloride 97 L Carbon Dioxide 28 BUN 27 H Creatinine 0.98 Estimated GFR 59 L BUN/Creatinine Ratio 27.6 H Glucose 171 H Lactate 1.7 Calcium 8.5 Magnesium Total Bilirubin 0.7 AST 36 ALT 24 Alkaline Phosphatase 144 H Troponin I NT-Pro-B Natriuret Pep Total Protein 8.0 Albumin 4.0 Globulin 4.0 Albumin/Globulin Ratio 1.0 Lipase Procalcitonin Urine Color Urine Appearance Urine pH Ur Specific [place] Urine Protein Urine Glucose (UA) Urine Ketones Urine Occult Blood Urine Nitrate Urine Bilirubin Urine Urobilinogen Ur Leukocyte Esterase Urine RBC Urine WBC Ur Squamous Epith Cells Urine Bacteria Hyaline Casts Granular Casts Ur Culture Indicated? Chlamy pneumoniae PCR Adenovirus (PCR) B. pertussis DNA (PCR) B.parapertussis DNA PCR Coronavirus OC43 (PCR) Coronavirus HKU1 (PCR) Coronavirus 229E (PCR) SARS-CoV-2 (PCR) Coronavirus NL63 (PCR) Human Metapneumovir PCR Influenza Type A (PCR) Influenza Type B (PCR) M. pneumoniae (PCR) Parainfluenza 1 (PCR) Parainfluenza 2 (PCR) Parainfluenza 3 (PCR) Parainfluenza 4 (PCR) RSV (PCR) Entero/Rhino (PCR) 04/02/22 04/02/22 04/02/22 00:25 00:25 00:45 WBC RBC Hgb Hct MCV MCH MCHC RDW Plt Count Neut % (Auto) Lymph % (Auto) [place] % (Auto) Eos % (Auto) Baso % (Auto) Neut # (Auto) Lymph # (Auto) [place] # (Auto) Eos # (Auto) Baso # (Auto) PT 22.4 H INR 2.0 H Sodium Potassium Chloride Carbon Dioxide BUN Creatinine Estimated GFR BUN/Creatinine Ratio Glucose Lactate Calcium Magnesium 2.2 Total Bilirubin AST ALT Alkaline Phosphatase Troponin I < 0.012 NT-Pro-B Natriuret Pep 423 Total Protein Albumin Globulin Albumin/Globulin Ratio Lipase 23 Procalcitonin 0.24 Urine Color Yellow Urine Appearance Clear Urine pH 6.0 Ur Specific [place] 1.020 Urine Protein 2+ H Urine Glucose (UA) Negative Urine Ketones Negative Urine Occult Blood 1+ H Urine Nitrate Positive H Urine Bilirubin Negative Urine Urobilinogen 0.2 Ur Leukocyte Esterase Negative Urine RBC 1-5/hpf Urine WBC 5-10/hpf H Ur Squamous Epith Cells 1-5 /hpf Urine Bacteria Many (>30) H Hyaline Casts 10-30/lpf Granular Casts 1-5/lpf Ur Culture Indicated? Specimen cultured Chlamy pneumoniae PCR Adenovirus (PCR) B. pertussis DNA (PCR) B.parapertussis DNA PCR Coronavirus OC43 (PCR) Coronavirus HKU1 (PCR) Coronavirus 229E (PCR) SARS-CoV-2 (PCR) Coronavirus NL63 (PCR) Human Metapneumovir PCR Influenza Type A (PCR) Influenza Type B (PCR) M. pneumoniae (PCR) Parainfluenza 1 (PCR) Parainfluenza 2 (PCR) Parainfluenza 3 (PCR) Parainfluenza 4 (PCR) RSV (PCR) Entero/Rhino (PCR) 04/02/22 04/02/22 00:51 01:04 WBC RBC Hgb Hct MCV MCH MCHC RDW Plt Count Neut % (Auto) Lymph % (Auto) [place] % (Auto) Eos % (Auto) Baso % (Auto) Neut # (Auto) Lymph # (Auto) [place] # (Auto) Eos # (Auto) Baso # (Auto) PT INR Sodium Potassium Chloride Carbon Dioxide BUN Creatinine Estimated GFR BUN/Creatinine Ratio Glucose Lactate Calcium Magnesium Total Bilirubin AST ALT Alkaline Phosphatase Troponin I NT-Pro-B Natriuret Pep Total Protein Albumin Globulin Albumin/Globulin Ratio Lipase Procalcitonin Urine Color Urine Appearance Urine pH Ur Specific [place] Urine Protein Urine Glucose (UA) Urine Ketones Urine Occult Blood Urine Nitrate Urine Bilirubin Urine Urobilinogen Ur Leukocyte Esterase Urine RBC Urine WBC Ur Squamous Epith Cells Urine Bacteria Hyaline Casts Granular Casts Ur Culture Indicated? Chlamy pneumoniae PCR Not detected Adenovirus (PCR) Not detected B. pertussis DNA (PCR) Not detected B.parapertussis DNA PCR Not detected Coronavirus OC43 (PCR) Not detected Coronavirus HKU1 (PCR) Not detected Coronavirus 229E (PCR) Not detected SARS-CoV-2 (PCR) Positive H Detected H Coronavirus NL63 (PCR) Not detected Human Metapneumovir PCR Not detected Influenza Type A (PCR) Not detected Influenza Type B (PCR) Not detected M. pneumoniae (PCR) Not detected Parainfluenza 1 (PCR) Not detected Parainfluenza 2 (PCR) Not detected Parainfluenza 3 (PCR) Not detected Parainfluenza 4 (PCR) Not detected RSV (PCR) Not detected Entero/Rhino (PCR) Not detected Assessment & Plan Assessment & Plan narrative: Acute hypxemic resp failure COVID 19 Morbid obesity diastolic HD RA PAF - on coumadin Plan cont o2 via NC ABG TTE map at goal trend BMP monitor UO goal negative balance trend cbc dyson cx cont ceftriazone may need atypical treatment baricitnib and remdesivir on dexamethasone trend BG dvt ppx - on warfarin CCT 42 min Time Spent With Patient Critical Care time: I spent a total of [] minutes of critical care time on this patient's care today; this time is exclusive of procedural time.
[2022-04-02 05:03] LABS: Hemoglobin A1C% w Est Avg Glu 6.5 % (4.0-6.0)
[2022-04-02 05:14] LABS: Add Manual Diff / Slide Review NO; Basophils Absolute Auto 0 /uL (0-100); Basophils Percent Auto 0.1 % (0-2); Eosinophils Absolute Auto 0 /uL (0-450); Eosinophils Percent Auto 0.1 % (2-4); Hematocrit 45.9 % (36-46); Hemoglobin 15.3 g/dL (12.0-16.0); Lymphocytes Absolute Auto 1200 /uL (1100-4500); Lymphocytes Percent Auto 6.2 % (25-40); Mean Corpuscular HGB Conc 33.3 % (30-36); Mean Corpuscular Hemoglobin 30.2 PG (26-34); Mean Corpuscular Volume 90.8 fL (80-100); Monocytes Absolute Auto 800 /uL (0-900); Neutrophils Absolute Auto 16900 /uL (1500-7000); Neutrophils Percent Auto 89.6 % (50-75); Platelet Count 262 X10^3/uL (150-400); Red Blood Cell Count 5.06 X10^6/uL (4.0-5.2); Red Cell Distribution Width 14.2 % (11.6-14.8); White Blood Cell Count 18.9 X10^3/uL (4.5-11.0)
[2022-04-02 05:21] LABS: INR 2.2 (0.9-1.3); Prothrombin Time 24.7 SECONDS (10.1-12.7)
[2022-04-02] MEDS: carvediloL 3.125 MG TABLET 6.25 MG PO (05:27)
[2022-04-02] MEDS: cefTRIAXone 2,000 MG in SODIUM CHLORIDE 0.9% 100 ML 200 MG IV (05:27)
[2022-04-02 05:32] LABS: Alanine Aminotransferase 23 IU/L (<35); Albumin 3.9 g/dL (3.5-5.0); Alkaline Phosphatase 147 U/L (38-126); Aspartate Aminotransferase 31 IU/L (14-36); BUN Creatinine Ratio 25.6 (6-22); Bilirubin Total 0.7 mg/dL (0.2-1.3); Bilirubin Unconjugated 0.3 mg/dL (0.0-1.1); Blood Urea Nitrogen 23 mg/dL (7-17); Calcium 8.5 mg/dL (8.4-10.2); Carbon Dioxide 33 mmol/L (22-32); Chloride 98 mmol/L (98-107); Estimated Glomerular Filt Rate > 60 mL/min (>60); Glucose 171 mg/dL (80-110); HEMOLYSIS < 15 (0-50); Magnesium 1.9 mg/dL (1.6-2.3); Potassium 4.1 mmol/L (3.4-5.1); Sodium 137 mmol/L (137-145); Total Protein 7.9 g/dL (6.3-8.2)
[2022-04-02 05:34] LABS: TSH w/ Reflex to FT4 2.25 uIU/mL (0.47-4.68)
--- NOTE | 2022-04-02 06:12 | RT ---
Patient transported to ICU and wanted a break from BiPAP. Patient placed back on BipAP at 0600. RT will follow up with ABG soon.
--- NOTE | 2022-04-02 06:46 | PC.ADMIT ---
[id number] [facility] Admission Note: The patient,Lena Diez,76 y/o, was given written information regarding hospital policies, unit procedures and contact persons. Patient's smoking status: Unknown if ever smoked. Vital Signs - 8 hr 04/02/22 00:29 04/02/22 01:40 04/02/22 02:11 Temperature Pulse Rate 114 H 112 H Respiratory Rate 28 H Blood Pressure 186/84 H 150/79 H Pulse Oximetry 94 92 Oxygen Delivery Method Nasal Cannula Nasal Cannula Oxygen Flow Rate 4 5 Fraction of Inspired Oxygen 04/02/22 01:50 04/02/22 04:00 04/02/22 04:00 Temperature Pulse Rate Respiratory Rate Blood Pressure Pulse Oximetry 91 Oxygen Delivery Method Nasal Cannula Nasal Cannula Oxygen Flow Rate 4 Fraction of Inspired Oxygen 40 04/02/22 04:30 04/02/22 04:26 04/02/22 04:26 Temperature 97.9 F Pulse Rate 104 H 106 H Respiratory Rate 22 18 Blood Pressure 177/86 H 175/84 H Pulse Oximetry 92 92 Oxygen Delivery Method Oxygen Flow Rate 4 Fraction of Inspired Oxygen 04/02/22 04:30 04/02/22 05:00 04/02/22 05:00 Temperature Pulse Rate 103 H 100 H Respiratory Rate 17 25 H Blood Pressure 159/82 H Pulse Oximetry 93 91 Oxygen Delivery Method Oxygen Flow Rate Fraction of Inspired Oxygen 04/02/22 05:27 04/02/22 05:30 04/02/22 06:00 Temperature Pulse Rate 95 H 97 H 115 H Respiratory Rate 16 25 H Blood Pressure 159/82 H Pulse Oximetry Oxygen Delivery Method Oxygen Flow Rate Fraction of Inspired Oxygen 04/02/22 06:01 04/02/22 06:01 Temperature Pulse Rate 110 H Respiratory Rate 25 H Blood Pressure 207/114 H Pulse Oximetry Oxygen Delivery Method Oxygen Flow Rate Fraction of Inspired Oxygen Patient admitted to ICU room 230, placed in Droplet/Airborne Isolation for Covid-19. On 4L NC for transfer, SpO2 89-94%, able to converse and answer questions, is forgetful, in room briefly to assist. ST 100, hypertensive, see vital trends, Nitro paste on, carvedilol given. Diuresed 2500ml UOP in [place]. Rocephin started. Bi-pap placed back on at 0630, tolerating well.
[2022-04-02 06:54] LABS: HCO3 ABG 29 mmol/L (22-26); Oxygen Saturation ABG 90 % (95-100); PCO2 ABG 61.5 mmHg (35-45); PO2 ABG 67 mmHg (80-100); TCO2 ABG 31 mmol/L (21-31); pH ABG 7.29 (7.35-7.45)
[2022-04-02 06:55] LABS: Fractionated Inspired Oxygen 35
[2022-04-02] MEDS: lisinopriL 20 MG TABLET 40 MG PO (07:28)
[2022-04-02] MEDS: REMDESIVIR 200 MG in SODIUM CHLORIDE 0.9% 210 ML 250 MG IV (07:29)
[2022-04-02] MEDS: LEVOTHYROXINE 125 MCG TABLET PO (07:29)
--- NOTE | 2022-04-02 08:45 | DIET.CONS2 ---
Dietary Inpatient Consultation Note Admission Date: 04/02/2022 03:08 RD consulted for NPO on vent status, however, upon viewing pt, she is sitting up chatting in room 230 eating breakfast. d/c nutrition consult. Diet: 04/02/22 Breakfast Carbohydrate Consistent Diet Diet Modifications: Carbohydrate level: Large (4 CHO) Bedtime snack: No Fluid Restriction Diet Diet Modifications: Total fluid amount: 1,200 Amount allotted to patient trays: 400 Free water included in total: Yes Fluid in addition to trays: 2855-9847 amount: 800 [id number] amount: 400 Heart Healthy Diet Diet Modifications: Sodium Level: No Added Salt Electronically Signed by: Radha Powers 04/02/22 08:45 Clinical Dietitian [address] [address]
[2022-04-02 08:57] LABS: pH ABG 7.34 (7.35-7.45)
[2022-04-02 08:58] LABS: Fractionated Inspired Oxygen 36; HCO3 ABG 33 mmol/L (22-26); Oxygen Saturation ABG 86 % (95-100); PO2 ABG 56 mmHg (80-100); TCO2 ABG 35 mmol/L (21-31)
[2022-04-02 08:59] LABS: PCO2 ABG 62.2 mmHg (35-45)
--- NOTE | 2022-04-02 09:36 | PM.ICURNDS ---
- :: This patient was seen via real time interactive two-way audiovisual telecommunication. Note: Patient admitted for acute hypoxemia respiraotry failure secondary to COVID PNA w/ superimposed PNA. On 6 liters NC and off BiPAP. Diuresed and negative ~2 liters. On baricitinib and remdesivir. Encourage IS and OOB as tolerated. On contact/airborne precautions. D/w RN and hospitalist at bedside.
[2022-04-02] MEDS: DEXAMETHASONE 10 MG/ML VIAL 6 MG IV (09:43)
[2022-04-02] MEDS: BARICITINIB 2 MG TABLET 4 MG PO (09:43)
[2022-04-02] MEDS: ASPIRIN EC 81 MG TABLET PO (09:44)
[2022-04-02] MEDS: DOCUSATE 100 MG CAPSULE PO ×2 (09:44→20:47)
[2022-04-02] MEDS: CITALOPRAM 10 MG TABLET 40 MG PO (09:45)
[2022-04-02] MEDS: carvediloL 12.5 MG TABLET 6.25 MG PO ×2 (09:45→20:47)
[2022-04-02] MEDS: FUROSEMIDE 20 MG/2 ML VIAL 40 MG IV (10:00)
[2022-04-02] MEDS: INSULIN LISPRO 100 UNIT/ML 3ML VIAL SUBCUT ×2 (11:11→18:16)
[2022-04-02] MEDS: SODIUM CHLORIDE 0.9% FLUSH 10 ML IV ×2 (11:14→20:49)
[2022-04-02] MEDS: PANTOPRAZOLE 40 MG VIAL IV (11:20)
--- NOTE | 2022-04-02 12:31 | CM.DANOTE ---
MAP Note: Payor: Medicare PCP: Antonieta Calderon MD Pt is a 76 y.o. F who was admitted to the ICU for COVID related symptoms. Pt tested positive for COVID on March 28 and has been taking Paxovid for 2 days. Pt called ambulance due to the pt SOB. When presented to the ED, pt was found to be in respiratory distress. Pt was put on BiPAP in the ED and administered Solumedrol dose. Pt also has confirmed UTI and was started on IV Zosyn. DCP unable to enter pt room due to COVID restrictions. Pt unable to contact pt. DCP called pt , Emigdio, for more information. Per Emigdio, pt uses a walker at baseline to get around their split level home. Emigdio states that pt lives on the lower level of the home. He states that they live with their daughter and granddaughter. Emigdio states that patient does not have home O2 but has been asking her PCP for it due to the fact that she has a hard time breathing when moving around the house at baseline. DCP spoke to Emigdio and states that if RT determines she needs home O2, they can help set that up. Emigdio states that pt has used home health in the past but cannot remember the agency. Emigdio declines any needs at this time other than the interest in home O2. Contact information provided to Emigdio to contact DCP if any other questions or concerns arise. P: Once pt is medically stable for discharge, pt to discharge home via spouse POV. R/o need for HH. 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 Yes Advance Directives on File No History Provided By Significant Other Has Patient been admitted in last 30 No days? Prior Living Arrangements Apartment/Condo Comment Split level Household Members spouse,children Type of transporation used prior to Relies on Others admit Independent with ADL's Yes DME Already Rented / Owned FWW / Walker Discharge Plan Home Referrals Initiated None needed Additional Comment At this time Whiteboard Updated in Patient Room with No name and ext. # of Gas Engine Performance Engineer Comment DCP unable to enter room due to COVID restrictions. Review Status In Process Please Provide Date Initial DC 04/02/22 Assessment Was Performed Next Review Type Continued Stay Review
--- NOTE | 2022-04-02 13:23 | PC.NURSE ---
Addendum entered by Tresa Godfrey R.N. 04/02/22 18:22: Patches to back removed, oxitrol for women in faint writing, Pt reports that Sometimes I use that to not have to pee all the time. Usually only using one patch, but both removed. Pain is not as controlled as Patient hoped, I hurt all over inconsistent with assigning number to pain. 5L NC Spo2 88-93% I just dont feel that great today Addendum entered by Tresa Godfrey R.N. 04/02/22 16:11: Location of 2 patches to lower back, no dates or times documented. Pt reporting pain controlled at present, remains confused, forgetting taking medication. Tolerating Bipap for about 90 min. Pt is needing significant cues to reposition and offload pressure to coccyx. Turn nq2, Original Note: AM shift Pt is pleasantly confused, forgetful. Does not recall reason for admission, unable to recall events leading up to stay, was unaware she was hospitalized with COVID. Pt is taking meds ok with h20, no swallowing difficulty noted. Requiring 6L NC, ABG frequently, Pt needing cueing to offload pressure to coccyx. [place] patent, lasix providing good output. Lungs remain coarse with rhonchi. Productive cough noted. Afebrile. Unable to locate fentanyl patch placed at home, Pt unable to tell when It was supposed to have been placed. PRN Oxycodone x1
[2022-04-02] MEDS: OXYCODONE IR 10 MG TABLET PO ×2 (13:44→19:55)
[2022-04-02] MEDS: WARFARIN 5 MG TABLET 2.5 MG PO (17:49)
[2022-04-02 19:55] LABS: BUN Creatinine Ratio 29.4 (6-22); Blood Urea Nitrogen 25 mg/dL (7-17); Carbon Dioxide 33 mmol/L (22-32); Chloride 96 mmol/L (98-107); Estimated Glomerular Filt Rate > 60 mL/min (>60); Glucose 205 mg/dL (80-110); HEMOLYSIS < 15 (0-50); Potassium 3.7 mmol/L (3.4-5.1); Sodium 138 mmol/L (137-145)
--- NOTE | 2022-04-02 20:25 | PM.ICURNDS ---
- :: This patient was seen via real time interactive two-way audiovisual telecommunication. Note: No acute issues during the day. Diuresed and negative 2.6 liters. On 5 liters w/ SpO2 ~ 89%. On decadron, baricitinib, and remdesivir therapy. Patient refused to use BiPAP. Will continue titrating down supplemental O2 to maintain SpO2 > 88%. D/w RN at bedside.
[2022-04-02] MEDS: SENNOSIDES 8.6 MG TABLET 17.2 MG PO (20:47)
[2022-04-02] MEDS: INSULIN GLARGINE 100 UNIT/ML 3ML PEN SUBCUT (21:33)
--- NOTE | 2022-04-02 21:48 | PC.NURSE ---
Addendum entered by Berta Whitt R.N. 04/03/22 06:14: Giselle Johnathan [facility] notified of urinary output of 250ml for this twelve hours, and recent IV infiltrate with patient being a difficult IV start. Many ecchymotic areas rachel upper extremities. No new orders received. Giselle Mann states PICC line and urinary output to be discussed with oncoming hospitalist. Addendum entered by Berta Whitt R.N. 04/03/22 05:47: Patient resistant to repositioning, but allowing side to side turning with Cally bed. Buttocks purple in color and blanchable. Waffle cushion placed. O2 at 4L, Sats 90-93%. Lungs with less wheezing after RT treatment. Original Note: RT if for breathing treatment and BiPap placement. Patient with trial of BiPap and unable to tolerate more than 15 minutes. Patient states that she has claustrophobia and she can't tolerate mask. O2 replaced at 5L sats 90-92%.
[2022-04-03] VITALS (35 sets, daily range): BP systolic 150–210; BP diastolic 71–97; PULSE 53–88; RESP 13–43; TEMP 36.2–36.4; O2SAT 4–98
[2022-04-03] MEDS: cefTRIAXone 1,000 MG in SODIUM CHLORIDE 0.9% 100 ML 200 MG IV (03:55)
[2022-04-03] MEDS: OXYCODONE IR 10 MG TABLET PO ×3 (04:42→20:52)
[2022-04-03] MEDS: SODIUM CHLORIDE 0.9% FLUSH 10 ML IV ×3 (04:43→22:15)
[2022-04-03 05:31] LABS: Add Manual Diff / Slide Review NO; Basophils Absolute Auto 0 /uL (0-100); Eosinophils Absolute Auto 0 /uL (0-450); Hematocrit 42.3 % (36-46); Hemoglobin 14.2 g/dL (12.0-16.0); Lymphocytes Absolute Auto 2800 /uL (1100-4500); Lymphocytes Percent Auto 19.8 % (25-40); Mean Corpuscular HGB Conc 33.7 % (30-36); Mean Corpuscular Hemoglobin 30.3 PG (26-34); Mean Corpuscular Volume 90.1 fL (80-100); Monocytes Absolute Auto 500 /uL (0-900); Monocytes Percent Auto 3.6 % (3-14); Neutrophils Absolute Auto 10800 /uL (1500-7000); Neutrophils Percent Auto 76.6 % (50-75); Platelet Count 279 X10^3/uL (150-400); Red Blood Cell Count 4.69 X10^6/uL (4.0-5.2); Red Cell Distribution Width 13.8 % (11.6-14.8); White Blood Cell Count 14.1 X10^3/uL (4.5-11.0)
[2022-04-03 05:32] LABS: INR 2.3 (0.9-1.3); Prothrombin Time 26.7 SECONDS (10.1-12.7)
[2022-04-03 05:36] LABS: Alanine Aminotransferase 19 IU/L (<35); Albumin 3.5 g/dL (3.5-5.0); Alkaline Phosphatase 110 U/L (38-126); Aspartate Aminotransferase 24 IU/L (14-36); BUN Creatinine Ratio 34.5 (6-22); Bilirubin Total 0.4 mg/dL (0.2-1.3); Bilirubin Unconjugated 0.2 mg/dL (0.0-1.1); Blood Urea Nitrogen 29 mg/dL (7-17); Calcium 8.2 mg/dL (8.4-10.2); Carbon Dioxide 35 mmol/L (22-32); Chloride 95 mmol/L (98-107); Estimated Glomerular Filt Rate > 60 mL/min (>60); Globulin 3.5 g/dL (1.7-4.1); Glucose 153 mg/dL (80-110); HEMOLYSIS < 15 (0-50); Magnesium 2.1 mg/dL (1.6-2.3); Potassium 3.6 mmol/L (3.4-5.1); Sodium 137 mmol/L (137-145)
[2022-04-03] MEDS: LEVOTHYROXINE 125 MCG TABLET PO (06:09)
--- NOTE | 2022-04-03 09:22 | PM.PN.EICU ---
Subjective Subjective Interval history: No acute issues overnight. Remains off BiPAP X 24 hours. On 4 liters NC. Current Medications Current Medications Medications: Home Medications atorvastatin 40 mg tablet (Lipitor) 40 mg PO QAM ##0 12/20/16 [History Confirmed 04/02/22] carvedilol 6.25 mg tablet (Coreg) 6.25 mg PO BID ##0 12/20/16 [History Confirmed 04/02/22] citalopram 40 mg tablet (Celexa) 40 mg PO QDAY ##0 12/20/16 [History Confirmed 04/02/22] fentanyl 50 mcg/hr transdermal patch 1 patch topical EVERY OTHER DAY ##0 12/20/16 [History Confirmed 04/02/22] furosemide 40 mg tablet 40 mg PO QDAY ##0 12/20/16 [History Confirmed 04/02/22] levothyroxine 125 mcg tablet (Synthroid) 125 mcg PO QDAY ##0 12/20/16 [History Confirmed 04/02/22] lisinopril 40 mg tablet 40 mg PO QDAY ##0 12/20/16 [History Confirmed 04/02/22] warfarin 2.5 mg tablet (Coumadin) 2.5 mg PO QPM ##0 12/20/16 [History Confirmed 04/02/22] ACETAMINOPHEN 0 mg PO Q4HP PRN ##30 01/03/17 [Rx] aspirin 81 mg tablet,delayed release 81 mg PO BID #60 tabs 05/02/17 [Rx] cefazolin 2 gram/50 mL in dextrose (iso-osmotic) intravenous piggyback 2 gm IV Q8H #21 ea 05/02/17 [Rx] oxycodone 5 mg tablet 5 - 10 mg PO Q3HP PRN #60 tabs 05/02/17 [Rx Confirmed 04/02/22] Visit Medications (administered) Generic Name Dose Route Start Last Admin Trade Name Freq PRN Reason Stop Dose Admin Albuterol/Ipratropium 3 ml 04/02/22 20:45 04/02/22 21:15 Albuterol/Ipratropium 3 Ml Ampul INH 3 ml RTQ4HR PRN Administration Shortness Of Breath Aspirin 81 mg 04/02/22 09:00 04/02/22 09:44 Aspirin Ec 81 Mg Tablet PO 81 mg DAILY ARUNA Administration Atorvastatin Calcium 40 mg 04/02/22 03:15 04/02/22 09:46 Atorvastatin 20 Mg Tablet PO Not Given DAILY ARUNA Carvedilol 6.25 mg 04/02/22 09:00 04/02/22 20:47 Carvedilol 12.5 Mg Tablet PO 6.25 mg BID ARUNA Administration Citalopram Hydrobromide 40 mg 04/02/22 09:00 04/02/22 09:45 Citalopram 10 Mg Tablet PO 40 mg DAILY ARUNA Administration Dexamethasone 6 mg 04/02/22 09:00 04/02/22 09:43 Dexamethasone 10 Mg/Ml Vial IV 6 mg DAILY ARUNA Administration Docusate Sodium 100 mg 04/02/22 09:00 04/02/22 20:47 Docusate 100 Mg Capsule PO 100 mg BID ARUNA Administration Furosemide 40 mg 04/02/22 09:00 04/02/22 10:00 Furosemide 20 Mg/2 Ml Vial IV 40 mg DAILY ARUNA Administration Ceftriaxone Sodium 1,000 mg/ 100 mls @ 200 mls/hr 04/03/22 03:45 04/03/22 04:43 Sodium Chloride IV Infused Q24H [facility] Infusion Insulin Glargine 5 unit 04/02/22 21:00 04/02/22 21:33 Insulin Glargine 100 Unit/Ml 3ml Pen SUBCUT 5 unit 2100 [facility] Administration Insulin Human Lispro 0 unit 04/02/22 07:45 04/02/22 21:22 Insulin Lispro 100 Unit/Ml 3ml Vial SUBCUT Not Given ACHS [facility] Protocol Levothyroxine Sodium 125 mcg 04/02/22 06:30 04/03/22 06:09 Levothyroxine 125 Mcg Tablet PO 125 mcg 0630 ARUNA Administration Lisinopril 40 mg 04/02/22 06:15 04/02/22 07:28 Lisinopril 20 Mg Tablet PO 40 mg DAILY ARUNA Administration Oxycodone HCl 10 mg 04/02/22 03:13 04/03/22 04:42 Oxycodone Ir 10 Mg Tablet PO 10 mg Q4HR PRN Administration Pain, Severe (7-10) Pantoprazole Sodium 40 mg 04/02/22 09:00 04/02/22 11:20 Pantoprazole 40 Mg Vial IV 40 mg DAILY ARUNA Administration Sennosides 17.2 mg 04/02/22 21:00 04/02/22 20:47 Sennosides 8.6 Mg Tablet PO 17.2 mg BEDTIME ARUNA Administration Sodium Chloride 10 ml 04/02/22 06:27 04/03/22 04:43 Sodium Chloride 0.9% Flush IV 10 ml PRN PRN Administration Flush Sodium Chloride 10 ml 04/02/22 09:00 04/02/22 20:49 Sodium Chloride 0.9% Flush IV 10 ml BID ARUNA Administration Warfarin Sodium 2.5 mg 04/02/22 17:00 04/02/22 17:49 Warfarin 5 Mg Tablet PO 2.5 mg 1700 ARUNA Administration Objective Labs Result Diagrams: 04/03/22 05:05 04/03/22 05:05 Labs: Laboratory Results - last 24 hr 04/02/22 04/03/22 04/03/22 19:30 05:05 05:05 WBC 14.1 H RBC 4.69 Hgb 14.2 Hct 42.3 MCV 90.1 MCH 30.3 MCHC 33.7 RDW 13.8 Plt Count 279 Neut % (Auto) 76.6 H Lymph % (Auto) 19.8 L [place] % (Auto) 3.6 Eos % (Auto) 0.0 L Baso % (Auto) 0.0 Neut # (Auto) 76985 H Lymph # (Auto) 2800 [place] # (Auto) 500 Eos # (Auto) 0 Baso # (Auto) 0 PT INR Sodium 138 137 Potassium 3.7 3.6 Chloride 96 L 95 L Carbon Dioxide 33 H 35 H BUN 25 H 29 H Creatinine 0.85 0.84 Estimated GFR > 60 > 60 BUN/Creatinine Ratio 29.4 H 34.5 H Glucose 205 H 153 H Calcium 8.0 L 8.2 L Magnesium 2.0 2.1 Total Bilirubin 0.4 Conjugated Bilirubin 0.0 Unconjugated Bilirubin 0.2 AST 24 ALT 19 Alkaline Phosphatase 110 Total Protein 7.0 Albumin 3.5 Globulin 3.5 Albumin/Globulin Ratio 1.0 04/03/22 05:05 WBC RBC Hgb Hct MCV MCH MCHC RDW Plt Count Neut % (Auto) Lymph % (Auto) [place] % (Auto) Eos % (Auto) Baso % (Auto) Neut # (Auto) Lymph # (Auto) [place] # (Auto) Eos # (Auto) Baso # (Auto) PT 26.7 H INR 2.3 H Sodium Potassium Chloride Carbon Dioxide BUN Creatinine Estimated GFR BUN/Creatinine Ratio Glucose Calcium Magnesium Total Bilirubin Conjugated Bilirubin Unconjugated Bilirubin AST ALT Alkaline Phosphatase Total Protein Albumin Globulin Albumin/Globulin Ratio CT Chest: 1. Bibasilar peribronchovascular opacities are suspicious for aspiration or pneumonia.? Clustered tree-in-bud nodules are seen in the right middle and lower lobes that are most likely infectious or inflammatory in etiology. 2. Moderate cardiomegaly.? TTE: The left ventricle is normal in size. There is mild-moderate concentric left ventricular hypertrophy. The ejection fraction is estimated to be 60-65%. ? The right ventricle is mildly dilated. The right ventricle is not well visualized. There appears to be hypokinesis of mid to distal free RV wall. Overall RV function appears to be mild to moderately reduced. RV was not well seen in the previous study. Exam Vital Signs (past 8 hours): - 04/03/22 02:00 04/03/22 04:17 04/03/22 05:00 Temperature 97.1 F L 97.6 F Pulse Rate 69 64 Respiratory Rate 17 18 Blood Pressure 150/73 H 161/79 H Pulse Oximetry 95 91 4 L Oxygen Delivery Method Nasal Cannula Oxygen Flow Rate 5 5 93 Fraction of Inspired Oxygen 40 Oxygen Delivery Method Nasal Cannula Oxygen Flow Rate 93 Quality TeleICU VTE Deep Vein Thrombosis/Pulmonary Embolism Present on Admission: No Assessment & Plan Assessment & Plan narrative: NEURO: # Decondition -- Seek PT/OT consultation and OOB as tolerated RESP: # Acute hypoxemia respiratory failure -- Considered multifactorial due to COVID PNA w/ superimposed pulmonary edema and possible ? bacterial PNA -- COVID rx as below -- Off BiPAP -- Cont supplemental O2 to maintain goal SpO2 > 88% -- Encourage IS and OOB as tolerated -- Aspiration precaution -- Goal SpO2 > 88% # Abnormal CT chest -- Secondary to PNA from viral vs bacterial -- Cont gentle diuresis to seek net negative fluid balance -- Will need repeat CT chest in 4-6 weeks to document clearance -- Cont abx as below CVS: # HTN -- On coreg and lisinopril -- Goal SBP < 140 # Pulmonary edema -- Cont aggressive ID: # Sepsis -- Secondary to COVID PNA w/ ? superimposed bacterial infection -- On ceftriaxone -- COVID rx as below -- Follow up cx data # COVID PNA -- On baricitinib, remdesivir, and decadron -- On contact/airborne isloations ENDO: -- GOal BS < 180 Okay to downgrade to telemetry. D/w RN and hospitalist. Time Spent With Patient Critical Care time: I spent a total of [] minutes of critical care time on this patient's care today; this time is exclusive of procedural time.
[2022-04-03] MEDS: CITALOPRAM 10 MG TABLET 40 MG PO (09:47)
[2022-04-03] MEDS: ATORVASTATIN 20 MG TABLET 40 MG PO (09:47)
[2022-04-03] MEDS: INSULIN LISPRO 100 UNIT/ML 3ML VIAL SUBCUT ×2 (09:47→18:52)
[2022-04-03] MEDS: lisinopriL 20 MG TABLET 40 MG PO (09:48)
[2022-04-03] MEDS: PANTOPRAZOLE 40 MG VIAL IV (09:48)
[2022-04-03] MEDS: DOCUSATE 100 MG CAPSULE PO ×2 (09:48→20:53)
[2022-04-03] MEDS: BARICITINIB 2 MG TABLET 4 MG PO (09:48)
[2022-04-03] MEDS: FUROSEMIDE 20 MG/2 ML VIAL 40 MG IV (09:48)
[2022-04-03] MEDS: DEXAMETHASONE 10 MG/ML VIAL 6 MG IV (09:49)
[2022-04-03] MEDS: carvediloL 12.5 MG TABLET 6.25 MG PO ×2 (09:49→22:13)
[2022-04-03] MEDS: ASPIRIN EC 81 MG TABLET PO (09:52)
[2022-04-03] MEDS: REMDESIVIR 100 MG in SODIUM CHLORIDE 0.9% 230 ML 250 MG IV (12:27)
--- NOTE | 2022-04-03 13:41 | PM.PN.1 ---
Subjective Subjective Date Patient Seen: 04/03/22 Interval history: Patient feels much improve, both cognitively today and with regards to shortness of breath. No chest pain, nausea, vomiting. Baseline uses a walker at home, had been intermittently but over the last few months she has been more unsteady. Exam Vital Signs (past 8 hours): - 04/03/22 09:00 04/03/22 10:00 04/03/22 07:00 Pulse Rate 53 L Respiratory Rate 22 13 Blood Pressure 172/71 H Pulse Oximetry 93 91 94 Oxygen Flow Rate 4 5 04/03/22 07:30 04/03/22 08:00 04/03/22 08:30 Pulse Rate 60 55 L 55 L Respiratory Rate 19 17 21 Blood Pressure Pulse Oximetry 94 93 94 Oxygen Flow Rate 04/03/22 09:00 04/03/22 09:30 04/03/22 10:00 Pulse Rate 53 L 53 L 56 L Respiratory Rate 17 13 22 Blood Pressure Pulse Oximetry 95 95 96 Oxygen Flow Rate 04/03/22 10:30 04/03/22 11:00 04/03/22 11:30 Pulse Rate 88 72 74 Respiratory Rate 36 H 26 H 19 Blood Pressure Pulse Oximetry 76 L 92 98 Oxygen Flow Rate 04/03/22 11:59 04/03/22 11:59 04/03/22 12:00 Pulse Rate 71 73 Respiratory Rate 19 43 H Blood Pressure 210/97 H Pulse Oximetry 94 94 Oxygen Flow Rate Fraction of Inspired Oxygen 40 Oxygen Delivery Method Nasal Cannula Oxygen Flow Rate 5 Narrative Exam Narrative: General:? Patient is well developed and well nourished, in no distress at this time. HEENT:? Normocephalic, atraumatic, extraocular muscles intact, oral pharynx is clear and mucous membranes are moist. Neck: supple and symmetric, trachea is midline, no cervical adenopathy. Negative for JVD Chest:? Normal AP diameter and contour without kyphoscoliosis, no tachypnea, equal chest rise bilaterally. Lungs:? CTA b/l no wheezing rhonchi or rales. Cardio:?RRR no m/r/g. Abdomen: S NT ND. No CVA tenderness. Musculoskeletal:? Muscle strength and tone are equal within normal limits, no deformity. Extremities: No edema or joint effusions. No cyanosis or clubbing. Skin:? Pale,? Warm to touch,dry and intact without rashes, ulcerations or petechiae.? Neuro:? Alert and orientated x3,? sensation to touch intact in all extremities, no gross deficits noted of cranial nerves. Psych:? Patient has a well-kept appearance, appropriate affect, mental status attitude thought context and judgment are appropriate for age. Objective Labs Result Diagrams: 04/03/22 05:05 04/03/22 05:05 Labs: Laboratory Results - last 24 hr 04/02/22 04/03/22 04/03/22 19:30 05:05 05:05 WBC 14.1 H RBC 4.69 Hgb 14.2 Hct 42.3 MCV 90.1 MCH 30.3 MCHC 33.7 RDW 13.8 Plt Count 279 Neut % (Auto) 76.6 H Lymph % (Auto) 19.8 L [place] % (Auto) 3.6 Eos % (Auto) 0.0 L Baso % (Auto) 0.0 Neut # (Auto) 82977 H Lymph # (Auto) 2800 [place] # (Auto) 500 Eos # (Auto) 0 Baso # (Auto) 0 PT INR Sodium 138 137 Potassium 3.7 3.6 Chloride 96 L 95 L Carbon Dioxide 33 H 35 H BUN 25 H 29 H Creatinine 0.85 0.84 Estimated GFR > 60 > 60 BUN/Creatinine Ratio 29.4 H 34.5 H Glucose 205 H 153 H Calcium 8.0 L 8.2 L Magnesium 2.0 2.1 Total Bilirubin 0.4 Conjugated Bilirubin 0.0 Unconjugated Bilirubin 0.2 AST 24 ALT 19 Alkaline Phosphatase 110 Total Protein 7.0 Albumin 3.5 Globulin 3.5 Albumin/Globulin Ratio 1.0 04/03/22 05:05 WBC RBC Hgb Hct MCV MCH MCHC RDW Plt Count Neut % (Auto) Lymph % (Auto) [place] % (Auto) Eos % (Auto) Baso % (Auto) Neut # (Auto) Lymph # (Auto) [place] # (Auto) Eos # (Auto) Baso # (Auto) PT 26.7 H INR 2.3 H Sodium Potassium Chloride Carbon Dioxide BUN Creatinine Estimated GFR BUN/Creatinine Ratio Glucose Calcium Magnesium Total Bilirubin Conjugated Bilirubin Unconjugated Bilirubin AST ALT Alkaline Phosphatase Total Protein Albumin Globulin Albumin/Globulin Ratio [facility] Medical History (Updated 04/02/22 @ 06:38 by DEBBIE Menon) Anticoagulated on warfarin Atrial fibrillation Chronic pain disorder Diabetes Diastolic heart failure Fibromyalgia syndrome Hyperlipidemia Hypothyroidism (acquired) Obesity, Class III, BMI 40-49.9 (morbid obesity) Surgical History (Updated 04/02/22 @ 06:38 by DEBBIE Menon) Asplenia Hx of bilateral hip replacements Hx of total knee replacement Family History (Updated 04/02/22 @ 04:50 by DEBBIE Menon) Mother Heart disease Father Heart disease Diabetes mellitus Daughter Heart disease Breast cancer Son Heart disease Social History household members: spouse and children Smoking Status: Unknown if ever smoked Assessment & Plan Assessment & Plan narrative: 76 F with a PMH diastolic CHF, hypertension, paroxysmal atrial fibrillation anticoagulated on warfarin, pre-diabetes, hyperlipidemia, hypothyroidism, and, rheumatoid arthritis, fibromyalgia and opioid dependent chronic pain as well as asplenia admitted with acute respiratory failure likely due to heart failure exacerbation and COVID 19. Acute respiratory failure with hypercarbia and hypoxemia likely secondary to congestive heart failure and COVID-19, present on admission - continue supplemental oxygen - thought to be more likely secondary to COVID-19, with component of acute on chronic heart failure - TTE with normal EF 60-65%. - initially on BIPAP therapy, now improved to 4L NC. - possible component of pneumonia, should be covered with ceftriaxone, less likely an atypical infection. More likely COVID 19 - continue remdesevir, baricitinib, and dexamethasone 6 mg IV for COVID infection. Acute on chronic diastolic heart failure, Chads 2 vasc score of 7, present on admission -continue lasix 40 mg daily. - continue strict intake and output. - Fluid restriction of 1200 mL daily with strict I&Os Paroxysmal atrial fibrillation, anticoagulated on warfarin - Continue home dose of warfarin - continue beta delaney Acute cystitis - continue ceftriaxone. Diabetes, type 2. - A1c 6.5% on admit labs. - Due to steroids she will receive, have put her on a carb controlled diet, glargine 5 units at bedtime and low dose correctional scale. Glucose is controlled today. Coronary artery disease, chronic - Continue home dose of carvedilol 6.25 mg bid and atorvastatin 40 mg po qpm. VTE Prophylaxis:Patient is currently anticoagulated on warfarin and is therapeutic. Patient is admitted to the inpatient service Dispo: probable eventual discharge to home Code status: Full code as discussed with the patient who identifies her , Emigdio her surrogate and POA. [X] I have utilized all available immediate resources to obtain, update, or review of the patient's current medications COVID-19 COVID-19 status: Positive Result date/Date tested (Pos, Neg/Pending): 03/28/22 Time Spent With Patient Critical Care time: I spent a total of [] minutes of critical care time on this patient's care today; this time is exclusive of procedural time. Quality VTE Deep Vein Thrombosis/Pulmonary Embolism Present on Admission: No
--- NOTE | 2022-04-03 14:55 | PT.IIE ---
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 (04/02/22) Surgical History (Last Updated 04/02/22 @ 06:38 by DEBBIE Menon) Asplenia Hx of bilateral hip replacements Hx of total knee replacement Medical History (Last Updated 04/02/22 @ 06:38 by DEBBIE Menon) Anticoagulated on warfarin Atrial fibrillation Chronic pain disorder Diabetes Diastolic heart failure Fibromyalgia syndrome Hyperlipidemia Hypothyroidism (acquired) Obesity, Class III, BMI 40-49.9 (morbid obesity) Physical Therapy Inpatient Evaluation/Re-Eval M1 PT/OT-IP Prior Functional Status Start: 04/03/22 15:48 Freq: NEEDED Status: Active Protocol: Document 04/03/22 14:55 AB (Rec: 04/03/22 16:00 [facility] Medical Review Prior Functional Status Medical History Reviewed Yes Communication able to make needs known; with confusion Mobility and Gait pt stated that she is able to ambulate at home using FWW and uses either a FWW or a 4WW for outdoor mobility depending on where she is going and what she is doing Social History Household Members spouse,children Living Arrangements Apartment/Condo Number of Floors (Floors) 3 or More Floors Number of Stairs To Enter/Railing? pt lives in a split level house no steps to enter Home Environment Standard Height Toilet,Walk in Shower Home Equipment Front Wheel Walker,Four Wheel Walker,Straight Cane,Raised Toilet Seat Without Armrests, Shower Seat without Backrest, Hand Held Shower,Grab Bars In Shower Additional Social History Comment pt lives with her spouse, daughter and grand daughter M2 PT-IP Current Condition Start: 04/03/22 15:48 Freq: NEEDED Status: Active Protocol: Document 04/03/22 14:55 AB (Rec: 04/03/22 16:00 AB [id number]) Physical Therapy Current Condition Current Condition Evaluation Date 04/03/22 Treatment Diagnosis Covid; SOB; difficulty in walking Onset Date 04/02/22 M3 PT-IP Subjective Start: 04/03/22 15:48 Freq: NEEDED Status: Active Protocol: Document 04/03/22 14:55 AB (Rec: 04/03/22 16:00 [facility] Subjective Physical Therapy Visit Type Type Initial Evaluation Visit Start Time 14:55 Visit Stop Time 15:39 Total Visit Minutes 44 Number of ADMINISTRATIVE SERVICES SPECIALIST Visits 0 Physical Therapy Visit Comments Patient Comments agreeable to do PT; pt stated that she is tired Therapy Pain Assessment Pain When Pain Assessed At Rest Pain Present Pain Present Pain Reported Location Generalized Intensity 7 Pain Management Techniques Distraction,Modification of Treatment M4 PT-IP Mobility and Gait Start: 04/03/22 15:48 Freq: NEEDED Status: Active Protocol: Document 04/03/22 14:55 AB (Rec: 04/03/22 16:00 AB [id number]) PT-Bed Mobility Assessment Supine to Sit Supine to Sit Minimal Assistance Scooting Scooting to Edge of Bed Maximum Assistance PT-Transfer Assessment Sit to and From Stand Sit to and from Stand Moderate Assistance,1 Person Assistance,Use of Upper Extremities Equipment Transfer Assistive Device Gait Belt,Front Wheeled Walker Orthotic/Prosthetic Devices or Brace: No Transfers Transfer Destination Chair Transfer Technique Stand Step Pivot Transfer Ability Level of Assist Moderate Assistance,Maximum Assistance,1 Person Assistance ,Use of Upper Extremities Comments Mobility Comments BP: 175/73 o2 sat 97% with O2 at 4L/min. completed supine to sit min A and cues. mod A for sitting balance, max A for scooting to EOB and able to sit SBA to CGA after positioning. completed sit to stand mod A and ambulated ~ 2 ft using FWW mod to max A and max cues and stated that she is tired and unable to walk farther. antalgic gait with decrease LE elevation. chair positioned closer to pt and completed step transfer to chair using FWW mod to max A and max cues. positioned pt on the chair max A x 2. call light and table placed within reach. O2 sat decreases with activity and lowest 80%. cued for deep breathing in between tasks and recovers to 90-95%. Gait Assessment Gait Gait Assistance Required: Moderate Assistance,Maximum Assistance Distance (Feet) 2 Able to Maintain Weight Bearing Status Yes During Gait Assistive Devices Assistive Device Gait Belt,Front Wheeled Walker Orthotic/Prosthetic Devices or Brace: No Gait Deviations General Gait Pattern Antalgic,Decreased Stride Length,Decreased Feet Clearance,Step-to Gait Factors Limiting Gait Function Factors Limiting Gait Function Decreased Activity Tolerance, Decreased Strength,Difficulty Following Directions,Limited Range of Motion,Pain,Poor Balance,Poor Safety Awareness, Respiratory Distress PT-Balance Assessment Sitting Balance and Reactions Static Sitting Balance Ability Good Dynamic Sitting Balance Ability Fair Standing Balance and Reactions Static Standing Balance Ability Poor Dynamic Standing Balance Ability Poor Device Used FWW M5 PT-IP Objective Assessments Start: 04/03/22 15:48 Freq: NEEDED Status: Active Protocol: Document 04/03/22 14:55 AB (Rec: 04/03/22 16:00 AB [id number]) Orientation Orientation/Cognition Level of Alertness Confusional State Orientation Name,Place,Situation Safety Awareness Decreased Safety Awareness Memory Description Short Term Impaired,Mcc Impaired Gross Range of Motion Lower Extremity ROM Assessment Within Functional Limits Strength Lower Extremity Strength Hip 4-/5 Knee 4-/5 Muscle Tone Muscle Tone WNL Yes M6 PT-IP Treatment Start: 04/03/22 15:48 Freq: NEEDED Status: Active Protocol: Document 04/03/22 14:55 AB (Rec: 04/03/22 16:00 AB [id number]) Physical Therapy Treatment Education Education Provided Safety M7 PT-IP Assessment and Plan Start: 04/03/22 15:48 Freq: NEEDED Status: Active Protocol: Document 04/03/22 14:55 AB (Rec: 04/03/22 16:00 AB [email or web address]) PT Summary Assessment and Plan Potential Rehabilitation Potential Fair Status of Condition at Evaluation Evolving Summary Impairments Pain,ROM,Strength,Balance, Coordination,Sensation,Tone, Cognition,Bed Mobility, Transfers,Gait,Activity Tolerance Assessment Summary pt requiring mod to max A with transfers and unable to ambulate much with c/o feeling tired and O2 sat decrease to 80% with activity on 4L/min O2 . d/c plan depending on progress but at this time may require SNF rehab to improve strength and mobility. Goals Bed Mobility Goal Independent Transfer Goal Independent,Front Wheeled Walker Gait Goal Independent,Front Wheel Walker Gait Distance 150 Days to Meet Goals 10 Frequency of Treatment Frequency Of Treatment Once a Day Treatment Plan Physical Therapy Treatment Plan Bed Mobility Training,Transfer Training,Gait Training, Therapeutic Exercise,Balance Retraining,Discharge Planning, Hot or Cold Pack,Neuromuscular Re-ed,Coordination Retraining ,Manual Therapy Precautions Other Precautions Covid Recommendations To Nursing Amount of Assist Needed 1 Person Assist Discharge Recommendations PT Discharge Recommendations Home with 24/7 Assist Available,Home Health,SNF Rehab,Home vs SNF Transportation Needs at Discharge Private Vehicle,Wheelchair/ Cabulance
--- NOTE | 2022-04-03 15:39 | OT.IP.EVAL ---
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 (04/02/22) Past Medical History (Last Updated 04/02/22 @ 06:38 by DEBBIE Menon) Anticoagulated on warfarin Atrial fibrillation Chronic pain disorder Diabetes Diastolic heart failure Fibromyalgia syndrome Hyperlipidemia Hypothyroidism (acquired) Obesity, Class III, BMI 40-49.9 (morbid obesity) Surgical History (Last Updated 04/02/22 @ 06:38 by DEBBIE Menon) Asplenia Hx of bilateral hip replacements Hx of total knee replacement Occupational Therapy Inpatient Evaluation/Re-Eval M1 PT/OT-IP Prior Functional Status Start: 04/03/22 15:48 Freq: NEEDED Status: Active Protocol: Document 04/03/22 16:35 CGR (Rec: 04/03/22 16:48 CGR [id number]) Medical Review Prior Functional Status Medical History Reviewed Yes Communication able to make needs known; with confusion Mobility and Gait pt stated that she is able to ambulate at home using FWW and uses either a FWW or a 4WW for outdoor mobility depending on where she is going and what she is doing Activities of Daily Living and IADL's Pt needed assist with LB dressing and donning a bra, she has help with showering, and is able to do basic ADls without assist. Pt's or daughter do all IADLs. Prior Functional Level (Other details) Pt lives with her , daughter and granddaughter Social History Household Members spouse,children Living Arrangements Apartment/Condo Number of Floors (Floors) 3 or More Floors Number of Stairs To Enter/Railing? pt lives in a split level house no steps to enter and stays on the main level Home Environment Standard Height Toilet,Walk in Shower Home Equipment Front Wheel Walker,Four Wheel Walker,Straight Cane,Raised Toilet Seat Without Armrests, Shower Seat without Backrest, Hand Held Shower,Grab Bars In Shower Employment Status Retired Additional Social History Comment pt lives with her spouse, daughter and grand daughter M1 PT/OT-IP Prior Functional Status Start: 04/03/22 16:35 Freq: NEEDED Status: Active Protocol: Document 04/03/22 16:35 CGR (Rec: 04/03/22 16:48 CGR [id number]) Medical Review Prior Functional Status Medical History Reviewed Yes Communication able to make needs known; with confusion Mobility and Gait pt stated that she is able to ambulate at home using FWW and uses either a FWW or a 4WW for outdoor mobility depending on where she is going and what she is doing Activities of Daily Living and IADL's Pt needed assist with LB dressing and donning a bra, she has help with showering, and is able to do basic ADls without assist. Pt's or daughter do all IADLs. Prior Functional Level (Other details) Pt lives with her , daughter and granddaughter Social History Household Members spouse,children Living Arrangements Apartment/Condo Number of Floors (Floors) 3 or More Floors Number of Stairs To Enter/Railing? pt lives in a split level house no steps to enter and stays on the main level Home Environment Standard Height Toilet,Walk in Shower Home Equipment Front Wheel Walker,Four Wheel Walker,Straight Cane,Raised Toilet Seat Without Armrests, Shower Seat without Backrest, Hand Held Shower,Grab Bars In Shower Employment Status Retired Additional Social History Comment pt lives with her spouse, daughter and grand daughter M2 OT-IP Current Condition Start: 04/03/22 16:35 Freq: Status: Active Protocol: Document 04/03/22 16:35 CGR (Rec: 04/03/22 16:48 CGR [id number]) Occupational Therapy Current Condition Current Condition Evaluation Date 04/03/22 Treatment Diagnosis covid, SOB, UTI, acute respiratory failure Diagnosis Onset Date 04/02/22 M3 OT- IP Subjective and Pain Start: 04/03/22 16:35 Freq: Status: Active Protocol: Document 04/03/22 16:35 CGR (Rec: 04/03/22 16:48 CGR [id number]) OT- Subjective Occupational Therapy Visit Type Type Initial Evaluation Visit Start Time 14:57 Visit Stop Time 15:39 Total Visit Minutes 42 Notes co-treat with P.T. OT Pain Assessment Pain When Pain Assessed At Rest Pain Present Pain Present Pain Reported Location Generalized Intensity 7 Scale Used Numeric (0 - 10) Management Techniques Distraction,Modification of Treatment,Re-positioning M4 OT- IP ADL's Start: 04/03/22 16:35 Freq: Status: Active Protocol: Document 04/03/22 16:35 CGR (Rec: 04/03/22 16:48 CGR [id number]) OT [id number] Comments OT Self-Feeding Comments not meal time OT ADL-Grooming Comments OT Grooming Comments offered to pt but pt states she is too tired OT ADL-Oral Care Comments Oral Care Comments offered to pt but pt states she is too tired OT ADL-Dressing General Eval Lower Body Dressing Ability Total Assistance Areas Needing Assistance Socks Comments OT Dressing Comments this is her baseline OT ADL-Toileting Comments OT Toileting Comments pt with callaway OT ADL-Bathing Comments OT Bathing Comments not performed M5 OT- IP IADL's Start: 04/03/22 16:35 Freq: Status: Active Protocol: Document 04/03/22 16:35 CGR (Rec: 04/03/22 16:48 CGR [id number]) OT-Instrumental Activities of Daily Living Deficits IADL Deficits Identified Deficits Home Safety Awareness Awareness of Need for Assistance at Home Decreased Awareness Ability to Problem Solve Emergency Unable to Problem Solve Situations Medication Management Medication Management Caregiver Administers Money Management Money Management Caregiver Provides Assistance Meal Preparation Meal Preparation Caregiver Provides Assist Digital Tech Digital Tech Caregiver Provides Assist Driving Driving Comments Pt does not drive M6 OT- IP Functional Cognition Start: 04/03/22 16:35 Freq: Status: Active Protocol: Document 04/03/22 16:35 CGR (Rec: 04/03/22 16:48 CGR [id number]) Cognitive Factors Limiting Selfcare Function Cognitive Ability Level of Alertness Alert,Confusional State Patient Orientation Name Attention Span Ability Capable of Focused Attention, Capable of Sustained Attention Ability to Follow Commands Able to Follow One Step Commands with Increased Time, Able to Follow One Step Commands with Repetition Cognitive Comments Cognitive Assessment Comments Pt having difficulty using her remote/call button dispite recent explanation of proper use. Pt would benefit from a formal cog assessment. OT- Vision and Hearing OT- Hearing Assessment OT- Hearing Assessment Hearing Impaired OT- Vision Assessment Visual Acuity Glasses All The Time Vision Assessment Comments pt wears trifocals M7 OT- IP Mobility and Balance Start: 04/03/22 16:35 Freq: Status: Active Protocol: Document 04/03/22 16:35 CGR (Rec: 04/03/22 16:48 CGR [id number]) OT- Bed Mobility Assessment Supine to Sit Supine to Sit Assist Minimal Assistance Scooting Scooting to Edge of Bed Maximum Assistance,2 Person Assistance OT-Transfer Assessment Sit to and From Stand Sit to and from Stand Moderate Assistance,1 Person Assistance Transfers Transfer Ability Moderate Assistance,Maximum Assistance,1 Person Assistance Technique Transfer Destination Bed,Chair Transfer Technique Stand Step Pivot Devices Transfer Assistive Devices Gait Belt,Front Wheeled Walker Comments Mobility Comments Pt was unable to walk to the chair so the chair was brought to her. Pt ambulated ~2 feet with poor endurance and drop in o2 stats to 80% on 4L. At rest pt is at 95% OT- Balance Assessment Sitting Balance and Reactions Static Sitting Balance Ability Poor Dynamic Sitting Balance Ability Poor M8 OT- IP Objective Assessments Start: 04/03/22 16:35 Freq: Status: Active Protocol: Document 04/03/22 16:35 CGR (Rec: 04/03/22 16:48 CGR [id number]) OT Gross Range of Motion Upper Extremity Range of Motion Assessment Within Functional Limits ROM Impairments shlds 0-100 OT Strength Comments Strength Comments 4-/5 throughout OT- Coordination Assessment Upper Extremity Finger to Nose Test Within Functional Limits Finger Tapping Test Within Functional Limits OT-Muscle Tone Assessment Muscle Tone WNL Yes OT Sensation Assessment Edema Edema Absent M9 OT- IP Assessment and Plan Start: 04/03/22 16:35 Freq: Status: Active Protocol: Document 04/03/22 16:35 CGR (Rec: 04/03/22 16:48 CGR [id number]) OT Summary Assessment and Plan Potential Rehabilitation Potential Good Analytic Complexity at Evaluation Moderate Summary OT Impairments Pain,Strength,Balance, Functional Cognition, Functional Mobility,Self- Feeding,Grooming,Dressing, Toileting,Bathing,Toilet Transfers,Shower Transfers, Activity Tolerance Progress Towards Goals Slow Progress due to Medical Issues Assessment Summary Pt presents as a moderate complexity evaluation s/p admit for SOB with covid and found to have UTI and acute respiratory failure. Pt is limited in her mobility at baseline with SOB and gets assist from her family for most ADLs. Currently pt is most limited by her endurance as seen with a drop in o2 stats from 95% to 80 with simple transfers. Pt will benefit from OT services to address deficits. Recommendation is for SNF at this time but pt is likely to progress close to her baseline as her medical status improved and be safe for a discharge home with family support. Goals Grooming Goal Independent Dressing Goal Minimal Assistance Toileting Goal Independent Bathing Goal Moderate Assistance Toilet Transfer Goal Standby Assistance Shower Transfer Goal Moderate Assistance Days to Meet Goals 20 Frequency of Treatment Frequency Of Treatment Once a Day Treatment Plan OT Treatment Plan ADL Training,Functional Cognition Training,Functional Mobility,Patient/Family Education,Discharge Planning Discharge Recommendations OT Discharge Recommendations Home vs SNF Transportation Needs at Discharge Wheelchair/Cabulance
[2022-04-03] MEDS: TRAMADOL 50 MG TABLET 100 MG PO (18:56)
[2022-04-03] MEDS: ALBUTEROL/IPRATROPIUM 3 ML AMPUL INH (19:42)
--- NOTE | 2022-04-03 19:45 | RT ---
PRN Breathing treatment given. Patient refused BiPAP tonight. Patient informed to call Respiratory if needed.
[2022-04-03] MEDS: SENNOSIDES 8.6 MG TABLET 17.2 MG PO (20:53)
[2022-04-03] MEDS: INSULIN GLARGINE 100 UNIT/ML 3ML PEN SUBCUT (20:56)
[2022-04-03] MEDS: WARFARIN 5 MG TABLET 2.5 MG PO (21:59)
[2022-04-03] MEDS: lisinopriL 10 MG TABLET PO (22:35)
--- NOTE | 2022-04-03 22:41 | PC.NURSE ---
Addendum entered by Berta Whitt R.N. 04/04/22 01:01: DEBBIE Mann notified of BP 189/81 HR 72 an hour after administration of Lisinopril dose. Order received for Amlodipine dose. Same given after pharmacy verification. Patient's O2 sats 89-94% on 3L O2. Patient agreeable to repositioning in bed with use of Cally bed. Waffle cushion continues under buttocks. Purplish discoloration to buttocks receding, continues to be blanchable, and patient denies pain. Patient c/o pain to hands, knees and shoulders. Medicated per EMAR. Patient rates pain at 7/10. Original Note: Giselle LEWIS notified of BP 209/77. HR 79.Coreg 6.25 mg due at that time. Discussed giving Coreg with reassessment 30 minutes post medication. BP at 187/82 HR 75 thirty minutes post Coreg. DEBBIE Mann notified of new BP reading. Orders received for Lisinapril 10 mg po. Same given per EMAR. O2@ at 3L, sats 88% or greater. RT in for treatment. Patient has some scattered wheezes and coarse crackles throughout.
[2022-04-04] VITALS (10 sets, daily range): BP systolic 148–194; BP diastolic 79–93; PULSE 63–87; RESP 17–22; TEMP 36.7–37.1; O2SAT 92–97
[2022-04-04] MEDS: OXYCODONE IR 10 MG TABLET PO ×4 (00:44→18:32)
[2022-04-04] MEDS: AMLODIPINE 5 MG TABLET PO (00:45)
[2022-04-04] MEDS: cefTRIAXone 1,000 MG in SODIUM CHLORIDE 0.9% 100 ML 200 MG IV (03:50)
[2022-04-04] MEDS: LEVOTHYROXINE 125 MCG TABLET PO (05:32)
[2022-04-04] MEDS: TRAMADOL 50 MG TABLET 100 MG PO ×2 (05:33→20:53)
[2022-04-04 06:26] LABS: Add Manual Diff / Slide Review NO; Basophils Absolute Auto 0 /uL (0-100); Basophils Percent Auto 0.2 % (0-2); Eosinophils Absolute Auto 0 /uL (0-450); Hematocrit 44.9 % (36-46); Hemoglobin 15.3 g/dL (12.0-16.0); Lymphocytes Absolute Auto 2600 /uL (1100-4500); Lymphocytes Percent Auto 15.2 % (25-40); Mean Corpuscular HGB Conc 34.1 % (30-36); Mean Corpuscular Hemoglobin 30.3 PG (26-34); Mean Corpuscular Volume 88.8 fL (80-100); Monocytes Absolute Auto 800 /uL (0-900); Monocytes Percent Auto 4.8 % (3-14); Neutrophils Absolute Auto 13600 /uL (1500-7000); Neutrophils Percent Auto 79.8 % (50-75); Platelet Count 313 X10^3/uL (150-400); Red Blood Cell Count 5.05 X10^6/uL (4.0-5.2); Red Cell Distribution Width 13.8 % (11.6-14.8)
[2022-04-04 06:31] LABS: Prothrombin Time 23.2 SECONDS (10.1-12.7)
[2022-04-04 06:33] LABS: BUN Creatinine Ratio 45.8 (6-22); Blood Urea Nitrogen 33 mg/dL (7-17); Calcium 8.3 mg/dL (8.4-10.2); Carbon Dioxide 36 mmol/L (22-32); Chloride 95 mmol/L (98-107); Estimated Glomerular Filt Rate > 60 mL/min (>60); Glucose 138 mg/dL (80-110); HEMOLYSIS < 15 (0-50); Magnesium 2.2 mg/dL (1.6-2.3); Potassium 3.6 mmol/L (3.4-5.1); Sodium 136 mmol/L (137-145)
[2022-04-04] MEDS: CITALOPRAM 10 MG TABLET 40 MG PO (08:32)
[2022-04-04] MEDS: ATORVASTATIN 20 MG TABLET 40 MG PO (08:32)
[2022-04-04] MEDS: DOCUSATE 100 MG CAPSULE PO ×2 (08:33→20:52)
[2022-04-04] MEDS: carvediloL 12.5 MG TABLET 6.25 MG PO ×2 (08:33→20:54)
[2022-04-04] MEDS: BARICITINIB 2 MG TABLET 4 MG PO (08:33)
[2022-04-04] MEDS: lisinopriL 20 MG TABLET 40 MG PO (08:34)
[2022-04-04] MEDS: PANTOPRAZOLE 40 MG VIAL IV (08:36)
[2022-04-04] MEDS: DEXAMETHASONE 10 MG/ML VIAL 6 MG IV (08:37)
[2022-04-04] MEDS: FUROSEMIDE 20 MG/2 ML VIAL 40 MG IV (08:39)
[2022-04-04] MEDS: SODIUM CHLORIDE 0.9% FLUSH 10 ML IV ×2 (08:41→20:52)
[2022-04-04] MEDS: REMDESIVIR 100 MG in SODIUM CHLORIDE 0.9% 230 ML 250 MG IV (09:09)
[2022-04-04] MEDS: VANCOMYCIN 2,000 MG/400 ML PIGGYBACK 200 MG IV (13:33)
--- NOTE | 2022-04-04 14:07 | P.PN_ITS ---
Subjective Subjective Date Patient Seen: 04/04/22 Interval history: Patient has chronic pain today, feels sore. Mainly in her back and muscles from her fibromyalgia. She has improved breathing today, but has not gotten up much. Oxygen use is slowly improving. Exam Vital Signs (past 8 hours): - 04/04/22 08:30 04/04/22 11:57 04/04/22 08:00 Temperature 98.7 F Pulse Rate 69 87 Respiratory Rate 20 22 Blood Pressure 152/93 H 192/90 H Pulse Oximetry 96 97 Oxygen Delivery Method Nasal Cannula Oxygen Flow Rate 3 3 Fraction of Inspired Oxygen 40 Oxygen Delivery Method Nasal Cannula Oxygen Flow Rate 3 Narrative Exam Narrative: General:? Patient is well developed and well nourished, in no distress at this time. HEENT:? Normocephalic, atraumatic, extraocular muscles intact, oral pharynx is clear and mucous membranes are moist. Neck: supple and symmetric, trachea is midline, no cervical adenopathy. Negative for JVD Chest:? Normal AP diameter and contour without kyphoscoliosis, no tachypnea, equal chest rise bilaterally. Lungs:? CTA b/l no wheezing rhonchi or rales. Cardio:?RRR no m/r/g. Abdomen: S NT ND. No CVA tenderness. Musculoskeletal:? Muscle strength and tone are equal within normal limits, no deformity. Extremities: No edema or joint effusions. No cyanosis or clubbing. Skin:? Pale,? Warm to touch,dry and intact without rashes, ulcerations or petechiae.? Neuro:? Alert and orientated x3,? sensation to touch intact in all extremities, no gross deficits noted of cranial nerves. Psych:? Patient has a well-kept appearance, appropriate affect, mental status attitude thought context and judgment are appropriate for age. Objective Labs Result Diagrams: 04/04/22 06:06 04/04/22 06:06 Labs: Laboratory Results - last 24 hr 04/04/22 04/04/22 04/04/22 06:06 06:06 06:06 WBC 17.0 H RBC 5.05 Hgb 15.3 Hct 44.9 MCV 88.8 MCH 30.3 MCHC 34.1 RDW 13.8 Plt Count 313 Neut % (Auto) 79.8 H Lymph % (Auto) 15.2 L [place] % (Auto) 4.8 Eos % (Auto) 0.0 L Baso % (Auto) 0.2 Neut # (Auto) 50004 H Lymph # (Auto) 2600 [place] # (Auto) 800 Eos # (Auto) 0 Baso # (Auto) 0 PT 23.2 H INR 2.0 H Sodium 136 L Potassium 3.6 Chloride 95 L Carbon Dioxide 36 H BUN 33 H Creatinine 0.72 Estimated GFR > 60 BUN/Creatinine Ratio 45.8 H Glucose 138 H Calcium 8.3 L Magnesium 2.2 PFSH Medical History (Updated 04/02/22 @ 06:38 by DEBBIE Menon) Anticoagulated on warfarin Atrial fibrillation Chronic pain disorder Diabetes Diastolic heart failure Fibromyalgia syndrome Hyperlipidemia Hypothyroidism (acquired) Obesity, Class III, BMI 40-49.9 (morbid obesity) Surgical History (Updated 04/02/22 @ 06:38 by DEBBIE Menon) Asplenia Hx of bilateral hip replacements Hx of total knee replacement Family History (Updated 04/02/22 @ 04:50 by DEBBIE Menon) Mother Heart disease Father Heart disease Diabetes mellitus Daughter Heart disease Breast cancer Son Heart disease Social History household members: spouse and children Smoking Status: Unknown if ever smoked Assessment & Plan Assessment & Plan narrative: 76 F with a H diastolic CHF, hypertension, paroxysmal atrial fibrillation anticoagulated on warfarin, pre-diabetes, hyperlipidemia, hypothyroidism, and, rheumatoid arthritis, fibromyalgia and opioid dependent chronic pain as well as asplenia admitted with acute respiratory failure likely due to heart failure exacerbation and COVID 19. Acute respiratory failure with hypercarbia and hypoxemia likely secondary to congestive heart failure and COVID-19, and bacterial pneumonia, present on admission - continue supplemental oxygen goal O2 90-96% while on therapy. - thought to be more likely secondary to COVID-19, with component of acute on chronic heart failure - TTE with normal EF 60-65%. - initially on BIPAP therapy, now improved to 2-3 L today. Continue to wean as tolerated. - Sputum cultures positive with a staph aureus today. MRSA swab negative but rising WBC count today. Will add vancomycin for MRSA coverage. - continue remdesevir, baricitinib, and dexamethasone 6 mg IV for COVID infection. Acute on chronic diastolic heart failure, Chads 2 vasc score of 7, present on admission -continue lasix 40 mg IV daily. - continue strict intake and output. Net negative 4L thus far over admission. - Fluid restriction of 1200 mL daily with strict I&Os Paroxysmal atrial fibrillation, anticoagulated on warfarin - Continue home dose of warfarin - continue beta delaney Acute cystitis - continue ceftriaxone as noted above Diabetes, type 2. - A1c 6.5% on admit labs. - Due to steroids she will receive, have put her on a carb controlled diet, glargine 5 units at bedtime and low dose correctional scale. Glucose is controlled today. Coronary artery disease, chronic - Continue home dose of carvedilol 6.25 mg bid and atorvastatin 40 mg po qpm. Bacterial pneumonia secondary to staph aureus - continue ceftriaxone, vancomycin added today. narrow after cultures result. VTE Prophylaxis:Patient is currently anticoagulated on warfarin and is therapeutic. Patient is admitted to the inpatient service Dispo: probable eventual discharge to home in the next 1-2 days, may need intermittent home O2. Code status: Full code as discussed with the patient who identifies her , Emigdio her surrogate and POA. [X] I have utilized all available immediate resources to obtain, update, or review of the patient's current medications COVID-19 COVID-19 status: Positive Result date/Date tested (Pos, Neg/Pending): 03/28/22 Time Spent With Patient Critical Care time: I spent a total of [] minutes of critical care time on this patient's care today; this time is exclusive of procedural time. Quality VTE Deep Vein Thrombosis/Pulmonary Embolism Present on Admission: No
--- NOTE | 2022-04-04 16:45 | PT.IPTN ---
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 (04/02/22) Physical Therapy Treatment Note M2 PT-IP Current Condition Start: 04/03/22 15:48 Freq: NEEDED Status: Active Protocol: Document 04/03/22 14:55 AB (Rec: 04/03/22 16:00 AB [id number]) Physical Therapy Current Condition Current Condition Evaluation Date 04/03/22 Treatment Diagnosis Covid; SOB; difficulty in walking Onset Date 04/02/22 M3 PT-IP Subjective Start: 04/03/22 15:48 Freq: NEEDED Status: Active Protocol: Document 04/04/22 16:45 AW (Rec: 04/04/22 17:02 AW [id number]) Subjective Physical Therapy Visit Type Type Treatment Note Visit Start Time 16:15 Visit Stop Time 16:45 Total Visit Minutes 30 Number of PROGRAM MANAGER TRANSPORTATION Visits 0 Physical Therapy Visit Comments Patient Comments agreeable to do PT; pt stated that she is tired Patient Goals Lena is hopeful to return home tomorrow. Therapy Pain Assessment Pain When Pain Assessed At Rest Pain Present Pain Present Denied Pain M4 PT-IP Mobility and Gait Start: 04/03/22 15:48 Freq: NEEDED Status: Active Protocol: Document 04/04/22 16:45 AW (Rec: 04/04/22 17:02 AW [id number]) PT-Bed Mobility Assessment Supine to Sit Supine to Sit Minimal Assistance Scooting Scooting to Edge of Bed Contact Guard Assistance PT-Transfer Assessment Sit to and From Stand Sit to and from Stand Contact Guard Assistance, Minimal Assistance,1 Person Assistance,Use of Upper Extremities Equipment Transfer Assistive Device Gait Belt,Front Wheeled Walker Orthotic/Prosthetic Devices or Brace: No Transfers Transfer Destination Chair Transfer Technique Stand Step Pivot Transfer Ability Level of Assist Minimal Assistance,1 Person Assistance,Use of Upper Extremities Comments Mobility Comments Pt had NC on but no oxygen flow as PT arrived. SpO2 was 94% on room air. PT removed NC and pt sat up EOB min A. She sat and focused on her breathing. SpO2 was stable. She stood min A and used FWW to take 5 short steps toward the chair. She requested to sit due to fatigue. After 2- minute rest break, pt stood CGA and used FWW to steady herself while marching in place 90 seconds before sitting again. SpO2 was stable 91-94% throughout and after exertion. Pt agreed to sit up on the chair where she was left with call light and all needs in reach. Gait Assessment Gait Gait Assistance Required: Minimum Assistance,1 Person Assist Distance (Feet) 2 Able to Maintain Weight Bearing Status Yes During Gait Assistive Devices Assistive Device Gait Belt,Front Wheeled Walker Gait Deviations General Gait Pattern Antalgic,Decreased Stride Length,Decreased Feet Clearance,Step-to Gait Factors Limiting Gait Function Factors Limiting Gait Function Decreased Activity Tolerance, Decreased Strength,Difficulty Following Directions,Limited Range of Motion,Pain,Poor Balance,Poor Safety Awareness, Respiratory Distress Comments Gait Comments Transfer only. See mobility comments for details. M5 PT-IP Objective Assessments Start: 04/03/22 15:48 Freq: NEEDED Status: Active Protocol: Document 04/03/22 14:55 AB (Rec: 04/03/22 16:00 AB [email or web address]) Orientation Orientation/Cognition Level of Alertness Confusional State Orientation Name,Place,Situation Safety Awareness Decreased Safety Awareness Memory Description Short Term Impaired,Fci Impaired Gross Range of Motion Lower Extremity ROM Assessment Within Functional Limits Strength Lower Extremity Strength Hip 4-/5 Knee 4-/5 Muscle Tone Muscle Tone WNL Yes M6 PT-IP Treatment Start: 04/03/22 15:48 Freq: NEEDED Status: Active Protocol: Document 04/04/22 16:45 AW (Rec: 04/04/22 17:02 AW [id number]) Physical Therapy Treatment Other Treatments Other Treatment Performed Pt completed 90 seconds of marching in place with reduced LE elevation but similar to steps taken during transfer. SpO2 was stable on room air. M7 PT-IP Assessment and Plan Start: 04/03/22 15:48 Freq: NEEDED Status: Active Protocol: Document 04/04/22 16:45 AW (Rec: 04/04/22 17:02 AW [id number]) PT Summary Assessment and Plan Summary Impairments Pain,ROM,Strength,Balance, Coordination,Sensation,Tone, Cognition,Bed Mobility, Transfers,Gait,Activity Tolerance Assessment Summary Pt improved her bed mobility and transfer today, requiring no more than min assist with FWW. However, her activity tolerance remains severely limited. Trialed activity on room air and SpO2 was stable 91-94%. Discharge plan will depend on pt's ability to tolerate more activity. She is hoping to go home with supportive family tomorrow. Will reassess before discharge . At this time, home with assist and home health seems most likely. Goals Bed Mobility Goal Independent Transfer Goal Independent,Front Wheeled Walker Gait Goal Independent,Front Wheel Walker Gait Distance 150 Days to Meet Goals 10 Frequency of Treatment Frequency Of Treatment Once a Day Treatment Plan Physical Therapy Treatment Plan Bed Mobility Training,Transfer Training,Gait Training, Therapeutic Exercise,Balance Retraining,Discharge Planning, Hot or Cold Pack,Neuromuscular Re-ed,Coordination Retraining ,Manual Therapy Precautions Other Precautions Covid; SpO2 goal 90-96% per hospitalist Recommendations To Nursing Amount of Assist Needed 2 Person Assist Discharge Recommendations PT Discharge Recommendations Home with 18/04 Assist Available,Home Health,SNF Rehab,Home vs SNF Transportation Needs at Discharge Private Vehicle,Wheelchair/ Cabulance
[2022-04-04] MEDS: WARFARIN 5 MG TABLET 2.5 MG PO (17:54)
[2022-04-04] MEDS: INSULIN LISPRO 100 UNIT/ML 3ML VIAL SUBCUT (17:55)
[2022-04-04] MEDS: INSULIN GLARGINE 100 UNIT/ML 3ML PEN SUBCUT (20:56)
[2022-04-05] VITALS (9 sets, daily range): BP systolic 172–195; BP diastolic 88–105; PULSE 59–98; RESP 18–21; TEMP 36.2–37.1; O2SAT 93–95
[2022-04-05] MEDS: OXYCODONE IR 10 MG TABLET PO ×2 (00:55→08:28)
[2022-04-05] MEDS: cefTRIAXone 1,000 MG in SODIUM CHLORIDE 0.9% 100 ML 200 MG IV (03:25)
[2022-04-05] MEDS: TRAMADOL 50 MG TABLET PO (05:53)
[2022-04-05] MEDS: LEVOTHYROXINE 125 MCG TABLET PO (05:54)
[2022-04-05 06:02] LABS: INR 2.4 (0.9-1.3); Prothrombin Time 27.9 SECONDS (10.1-12.7)
--- NOTE | 2022-04-05 06:24 | PC.NURSE ---
Senior Center Manager Note-Patient was awake most of the night, up to BSC frequently, no success with BM until am, had X-lg formed brown BM. Sat in chair half the night, uses call light appropriately. SpO2 > 92% on RA, mild shortness of breath with exertion, intermittent wheezes. Medicated with Tramadol and oxycodone per prn for chronic pain. Says I am so ready to go home
[2022-04-05] MEDS: carvediloL 12.5 MG TABLET 6.25 MG PO (08:21)
[2022-04-05] MEDS: ASPIRIN EC 81 MG TABLET PO (08:21)
[2022-04-05] MEDS: BARICITINIB 2 MG TABLET 4 MG PO (08:21)
[2022-04-05] MEDS: ATORVASTATIN 20 MG TABLET 40 MG PO (08:21)
[2022-04-05] MEDS: DEXAMETHASONE 10 MG/ML VIAL 6 MG IV (08:23)
[2022-04-05] MEDS: CITALOPRAM 10 MG TABLET 40 MG PO (08:23)
[2022-04-05] MEDS: DOCUSATE 100 MG CAPSULE PO (08:25)
[2022-04-05] MEDS: FUROSEMIDE 20 MG/2 ML VIAL 40 MG IV (08:25)
[2022-04-05] MEDS: lisinopriL 20 MG TABLET 40 MG PO (08:26)
[2022-04-05] MEDS: SODIUM CHLORIDE 0.9% FLUSH 10 ML IV (08:27)
[2022-04-05] MEDS: REMDESIVIR 100 MG in SODIUM CHLORIDE 0.9% 230 ML 250 MG IV (08:27)
[2022-04-05] MEDS: PANTOPRAZOLE 40 MG VIAL IV (08:27)
--- NOTE | 2022-04-05 10:45 | PT.IPTN ---
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 (04/02/22) Physical Therapy Treatment Note M2 PT-IP Current Condition Start: 04/03/22 15:48 Freq: NEEDED Status: Active Protocol: Document 04/03/22 14:55 AB (Rec: 04/03/22 16:00 AB [email or web address]) Physical Therapy Current Condition Current Condition Evaluation Date 04/03/22 Treatment Diagnosis Covid; SOB; difficulty in walking Onset Date 04/02/22 M3 PT-IP Subjective Start: 04/03/22 15:48 Freq: NEEDED Status: Active Protocol: Document 04/05/22 10:45 AW (Rec: 04/05/22 12:42 AW [id number]) Subjective Physical Therapy Visit Type Type Treatment Note Visit Start Time 10:18 Visit Stop Time 10:45 Total Visit Minutes 27 Number of NON MORSE INTERCEPT TECHNICIAN Visits 0 Physical Therapy Visit Comments Patient Comments Pt is willing to participate with PT, understands she will need to walk farther today. Patient Goals Lena remains hopeful to leave today. Therapy Pain Assessment Pain When Pain Assessed During Mobility Pain Present Pain Present Denied Pain M4 PT-IP Mobility and Gait Start: 04/03/22 15:48 Freq: NEEDED Status: Active Protocol: Document 04/05/22 10:45 AW (Rec: 04/05/22 12:42 AW [id number]) PT-Transfer Assessment Sit to and From Stand Sit to and from Stand Contact Guard Assistance,1 Person Assistance,Use of Upper Extremities Equipment Transfer Assistive Device Gait Belt,Front Wheeled Walker Orthotic/Prosthetic Devices or Brace: No Transfers Transfer Destination Chair Transfer Technique pt ambulated Transfer Ability Level of Assist Contact Guard Assistance,1 Person Assistance,Use of Upper Extremities Comments Mobility Comments BP remains elevated - 179/105/ SpO2 was 94% on room air. Pt was sitting EOB as PT arrived. She stood CGA and used FWW to ambulate 20 feet, ending up at the chair and sitting CGA. After seated rest break, pt agreed to ambulate again - another 20 feet with FWW CGA. SpO2 was stable throughout at 91-94% on room air. Pt did not have excessive work of breathing, no wet sounds, no cough. Pt was left on the chair with call light and tray table in reach. Gait Assessment Gait Gait Assistance Required: Contact Guard Assist,1 Person Assist Distance (Feet) 20 Able to Maintain Weight Bearing Status Yes During Gait Assistive Devices Assistive Device Gait Belt,Front Wheeled Walker Orthotic/Prosthetic Devices or Brace: No Gait Deviations General Gait Pattern Antalgic,Decreased Stride Length,Decreased Feet Clearance,Step-to Gait Factors Limiting Gait Function Factors Limiting Gait Function Decreased Activity Tolerance, Decreased Strength,Difficulty Following Directions,Limited Range of Motion,Pain,Poor Balance,Poor Safety Awareness, Respiratory Distress Comments Gait Comments Pt ambulated further today and stated she would not need to walk any longer distances at home, even to get in to the house. PT-Balance Assessment Sitting Balance and Reactions Static Sitting Balance Ability Good Dynamic Sitting Balance Ability Good Standing Balance and Reactions Static Standing Balance Ability Fair Dynamic Standing Balance Ability Fair Device Used FWW M5 PT-IP Objective Assessments Start: 04/03/22 15:48 Freq: NEEDED Status: Active Protocol: Document 04/03/22 14:55 AB (Rec: 04/03/22 16:00 AB [id number]) Orientation Orientation/Cognition Level of Alertness Confusional State Orientation Name,Place,Situation Safety Awareness Decreased Safety Awareness Memory Description Short Term Impaired,Jail Impaired Gross Range of Motion Lower Extremity ROM Assessment Within Functional Limits Strength Lower Extremity Strength Hip 4-/5 Knee 4-/5 Muscle Tone Muscle Tone WNL Yes M6 PT-IP Treatment Start: 04/03/22 15:48 Freq: NEEDED Status: Active Protocol: Document 04/05/22 10:45 AW (Rec: 04/05/22 12:42 AW [id number]) Physical Therapy Treatment Education Education Provided Safety M7 PT-IP Assessment and Plan Start: 04/03/22 15:48 Freq: NEEDED Status: Active Protocol: Document 04/05/22 10:45 AW (Rec: 04/05/22 12:42 AW [id number]) PT Summary Assessment and Plan Summary Impairments Pain,ROM,Strength,Balance, Coordination,Sensation,Tone, Cognition,Bed Mobility, Transfers,Gait,Activity Tolerance Progress Towards Goals Progressing Toward Goals,Slow Progress due to Activity Tolerance Assessment Summary Bed mobility was not assessed today as pt was already sitting up EOB as PT arrived. She stood CGA and used FWW to ambulate 20 feet x2 with CGA. Minimal respiratory distress during or after ambulation and SpO2 was stable 91-94% on room air. Pt will have her family at home to assist and will likely be safe to discharge with assist and HH PT once medically stable. Goals Bed Mobility Goal Independent Transfer Goal Independent,Front Wheeled Walker Gait Goal Independent,Front Wheel Walker Gait Distance 150 Days to Meet Goals 10 Frequency of Treatment Frequency Of Treatment Once a Day Treatment Plan Physical Therapy Treatment Plan Bed Mobility Training,Transfer Training,Gait Training, Therapeutic Exercise,Balance Retraining,Discharge Planning, Hot or Cold Pack,Neuromuscular Re-ed,Coordination Retraining ,Manual Therapy Precautions Other Precautions Covid; SpO2 goal 90-96% per hospitalist Recommendations To Nursing Amount of Assist Needed 1 Person Assist Discharge Recommendations PT Discharge Recommendations Home with 18/04 Assist Available,Home Health Transportation Needs at Discharge Private Vehicle
--- NOTE | 2022-04-05 12:35 | PM.DS.1 ---
History of Present Illness History of Present Illness Date Patient Seen: 04/05/22 Chief complaint: Shortness of breath, dx'd covid Narrative: Lena Diez is 76-year-old woman with a history of diastolic CHF, hypertension, paroxysmal atrial fibrillation anticoagulated on warfarin, pre-diabetes, hyperlipidemia, hypothyroidism, and, rheumatoid arthritis, fibromyalgia and opioid dependent chronic pain as well as asplenia presents with acute respiratory distress.? Patient is able to carry on a conversation particularly about her detailed past however she seems to be a bit confused about her medications and course of recent course of events.? She defers to her for her medical history.? Apparently she developed some symptoms and was tested for COVID on March 28 and is on day 2 of taking Paxovid.? Apparently the called the ambulance because she was short of breath.? She was found to be in acute respiratory failure with hypercapnia and hypercarbia in the emergency department.? She does complain about worse feet swelling.? She denies dysuria or chest pain.? She does have numbing of her thumb for finger and middle finger of her left hand which she states is not new.? She has rheumatoid arthritis for which she has generalized chronic pain.? She states that she does have heart failure and sees Dr. Alexander for this.? Her primary care provider is in [place], she sees a shell freezing machine operator in [place], she and her live in [place] however EMS brought her here because the hospital in [place] is on divert. In the emergency department she was put on BiPAP, administered a dose of Solu-Medrol for her breathing, was found to have a UTI and started on IV Zosyn.? Currently her blood pressure was 150/79, heart rate 112, respiratory rate 28, oxygen saturation of 92% on 5 L with an FiO2 of 40 she weighs 111 kg with a BMI of 43.4.? She does have a white count of 20 with a left shift her INR is therapeutic at 2.0, sodium 135, chloride 97, BUN 27, GFR is 59, glucose 171, A1c is pending, alk-phos is 144, TSH is pending, UA is positive for urinary tract infection and viral PCR is negative, COVID-19 PCR is still positive. Patient History Discharge Providers Provider Date of admission: 04/02/22 03:08 Discharge Date: 04/05/22 Primary care physician: DEBBIE Farley Consults: 04/02/22 03:13 Consult to Dietitian, Adult Routine Comment: Reason For Exam: Patient on Ventilator and NPO Consult to Tele-floodplain manager Routine Comment: Consulting Provider: [employer] Reason for consultation: [employer] Insulator Helper services Has provider been notified: No 04/02/22 03:23 Consult to Discharge Planning Routine Comment: 04/03/22 06:24 Consult After Hours PICC Line RN Routine Comment: 04/03/22 14:05 Consult to Occupational Therapy Evaluate & Treat Comment: Physician Instructions: Evaluate and treat Consult to Physical Therapy Evaluate & Treat Comment: Physician Instructions: Evaluate and Treat Discharge provider: Mayelin Beebe MD Summary Hospital Course Discharge Diagnosis: 1. Acute Hypoxic Respiratory Failure 2. COVID-19 Pneumonia 3. Diastolic CHF 4. Parosxymal Atrial Fibrillation 5. Hypertension 6. Hyperlipidemia Hospital Course: Patient was admitted to the hospital with acute respiratory following infection with Covid-19. She had started Paxlovid as an outpatient but got progressively worse. She was inititally treated with Oxygen via nasal canula. She also recieved Baricitinib/remedesivr and dexamethasone. She did require Bipap She was diuresed with lasix with improvement of her oxygenation. She was able to be titrated off oxygen totally and tolerated this well. She was a bit unsteady with ambulation but improved with physical therapy. She had a home Oxygen evaluation and did not require oxygen. She was deemed appropriate for discharge home. Status at Discharge Cognitive/behavioral status at discharge: oriented Functional status at discharge: uses cane/walker Overall status at discharge: patient is progressing back to baseline Exam Vital Signs (past 8 hours): - 04/05/22 05:00 04/05/22 08:21 04/05/22 08:26 Temperature Pulse Rate 98 H Respiratory Rate Blood Pressure 179/105 H Pulse Oximetry 94 Oxygen Delivery Method Room Air Oxygen Flow Rate 04/05/22 08:00 04/05/22 11:26 04/05/22 12:00 Temperature 98.5 F 97.2 F L Pulse Rate 72 65 Respiratory Rate 21 18 Blood Pressure 179/105 H 195/88 H Pulse Oximetry 95 94 Oxygen Delivery Method Oxygen Flow Rate 0 0 Fraction of Inspired Oxygen 40 Oxygen Delivery Method Room Air Oxygen Flow Rate 0 Narrative Exam Narrative: Pleasant female in no acute distress Resp Other: Lungs: clear to auscultation Cardio Other: CV: RRR nl Sl S2 2/6 RAYNE GI Other: Abd: soft/ non tender Objective Labs Result Diagrams: 04/04/22 06:06 04/04/22 06:06 Labs: Laboratory Results - last 24 hr 04/05/22 05:40 PT 27.9 H INR 2.4 H PFSH Medical History (Updated 04/02/22 @ 06:38 by DEBBIE Menon) Anticoagulated on warfarin Atrial fibrillation Chronic pain disorder Diabetes Diastolic heart failure Fibromyalgia syndrome Hyperlipidemia Hypothyroidism (acquired) Obesity, Class III, BMI 40-49.9 (morbid obesity) Surgical History (Updated 04/02/22 @ 06:38 by DEBBIE Menon) Asplenia Hx of bilateral hip replacements Hx of total knee replacement Family History (Updated 04/02/22 @ 04:50 by DEBBIE Menon) Mother Heart disease Father Heart disease Diabetes mellitus Daughter Heart disease Breast cancer Son Heart disease Social History household members: spouse and children Smoking Status: Unknown if ever smoked Discharge Assessment & Plan Assessment and Plan Assessment: 1. Acute Hypoxic Respiratory Failure 2. COVID-19 Pneumonia 3. Diastolic CHF 4. Parosxymal Atrial Fibrillation 5. Hypertension 6. Hyperlipidemia Plan of Treatment: Discharge Home F/u with PCP 1-2 weeks Discharge Plan Discharge Plan Patient Disposition: Home Discharge orders & Medications Prescriptions: New amoxicillin-pot clavulanate [Augmentin] 500-125 mg tablet 1 tab PO BID Qty: 6 0RF Continued atorvastatin [Lipitor] 40 MG tablet 40 mg PO QAM Qty: 0 citalopram [Celexa] 40 MG tablet 40 mg PO QDAY Qty: 0 levothyroxine [Synthroid] 125 MCG tablet 125 mcg PO QDAY Qty: 0 lisinopril 40 MG tablet 40 mg PO QDAY Qty: 0 carvedilol [Coreg] 6.25 MG tablet 6.25 mg PO BID Qty: 0 furosemide 40 MG tablet 40 mg PO QDAY Qty: 0 warfarin [Coumadin] 2.5 MG tablet 2.5 mg PO QPM Qty: 0 fentanyl 50 MCG/HR patch 72 hour 1 patch Topical EVERY OTHER DAY Qty: 0 oxycodone 5 MG tablet 5 - 10 mg PO Q3HP PRNQty: 60 0RF duloxetine 30 mg capsule,delayed release(DR/EC) 1 cap PO DAILY Label Comments: Take 1 capsule by mouth once a day Discontinued Paxlovid (EUA) 150 mg x 2- 100 mg tablet 2 tab PO DAILY Label Comments: TAKE 2 PINK TABS (NIRMATRELVIR 150MG) AND 1 WHITE TAB (RITONAVIR 100MG) TWICE DAILY FOR 5 DAYS Follow up/Referrals: Antonieta Calderon ARNP [Primary Care Provider] - Discharge Health Status Multidrug resistant organism: No MDRO Diet/Activity/Treatments Diet: Low-sodium and Low-cholesterol Skin/Wound/Dressing Care Report to your healthcare provider any signs of infection, such as:: chills, fever Discharge Data Primary Care Provider: Antonieta Calderon Quality VTE Deep Vein Thrombosis/Pulmonary Embolism Present on Admission: No
--- NOTE | 2022-04-05 14:56 | PC.NURSE ---
Discharge Note Patient A&O, VSS, RA, no complaints of pain/discomfort. Discharge packet reviewed with patient, all questions/concerns addressed. PIV/TELE discontinued. Patient assisted to get dressed and pack all belongings along with discharge packet. Patient taken down via wheelchair to POV.
== END 2022-04-05 14:30 | disposition home or self-care (01) | DRG 177 ==
LOC: ED 03:01 → ICU 03:46
PROVIDERS: Internal Medicine; Admitting Provider Nurse Practitioner Family; Emergency Provider Emergency Medicine; Family Provider Nurse Practitioner Family; PCP Nurse Practitioner Family; Referring Provider Emergency Medicine; Visit Provider Nurse Practitioner Family
DX: U07.1 COVID-19 (principal); J12.82 Pneumonia due to coronavirus disease 2019; J96.01 Acute respiratory failure with hypoxia; J15.211 Pneumonia due to Methicillin susceptible Staphylococcus aureus; I50.33 Acute on chronic diastolic (congestive) heart failure; Z68.41 Body mass index [BMI] 40.0-44.9, adult; F11.20 Opioid dependence, uncomplicated; N30.00 Acute cystitis without hematuria; E66.01 Morbid (severe) obesity due to excess calories; I48.0 Paroxysmal atrial fibrillation; I25.10 Atherosclerotic heart disease of native coronary artery without angina pectoris; E11.65 Type 2 diabetes mellitus with hyperglycemia; I11.0 Hypertensive heart disease with heart failure; E78.5 Hyperlipidemia, unspecified; E03.9 Hypothyroidism, unspecified; G89.29 Other chronic pain; M79.7 Fibromyalgia; Z87.891 Personal history of nicotine dependence; Z79.01 Long term (current) use of anticoagulants
CPT/HCPCS: 36415; 36592; 36600; 71045; 71250; 80048; 80053; 80076; 81001; 82805; 82962; 83036; 83605; 83690; 83735; 83880; 84145; 84443; 84484; 85025; 85610; 87040; 87070; 87077; 87086; 87147; 87186; 87205; 87633; 87635; 87797; 93005; 93010; 93306; 94618; 94640; 94660; 96365; 96375; 97116; 97162; 97166; 97530; 99285; 99291; 99292; C9803; C9113; J0696; J1100; J1642; J1815; J1940; J2543; J2930